=== PATIENT | female | born 1970 | race Caucasian/White ===

== ENCOUNTER 2021-04-13 03:13 | Inpatient (IN) ==
[2021-04-13] MEDS ORDERED: ONDANSETRON 4 MG/2 ML VIAL IV STA (03:40)
[2021-04-13] MEDS ORDERED: SODIUM CHLORIDE 0.9% 1,000 ML IV STA (03:40)
[2021-04-13] MEDS ORDERED: ONDANSETRON 4 MG/2 ML VIAL ONE (04:26)
[2021-04-13] MEDS ORDERED: OCTREOTIDE 100 MCG/ML SYRINGE IV STA (04:27)
[2021-04-13] MEDS ORDERED: PANTOPRAZOLE INJ 80 MG in SODIUM CHLORIDE 0.9% 100 ML IV ONE (04:27)
[2021-04-13 04:38] LABS: Basophils % 0.3 % (0.0-0.8); Hematocrit 36.1 VOL% (35.7-47.0); Hemoglobin 12.5 GM/DL (12.0-16.0); Immature Granulocytes % 1.1 %; Immature Granulocytes Absolute 0.12 #; Lymphocytes # 1.7 10*3/uL (1.4-4.0); Lymphocytes % 15.9 % (21.3-54.2); Mean Corpuscular HGB Conc 34.6 GM/DL (32-36); Mean Corpuscular Volume 92.8 FL (87-102); Mean Platelet Volume 12.7 FL (9.6-12.0); Monocytes % 7.6 % (1.7-12.7); Neutrophils % 75.1 % (38.7-73.9); Platelet Count 229 T/CUMM (130-400); Red Blood Count 3.89 MC/CUMM (3.8-5.5); White Blood Count 10.9 T/CUMM (4-12)
[2021-04-13] MEDS ORDERED: PANTOPRAZOLE 40 MG VIAL IV ONE ×2 (04:44→08:58)
[2021-04-13 05:00] LABS: Albumin 3.8 G/DL (3.4-5.0); Calcium 8.9 MG/DL (8.5-10.1); Osmolality,Calculated 254.6 MOS/KG (273-304); Total Protein 8.4 G/DL (6.4-8.2)
[2021-04-13] MEDS ORDERED: PROMETHAZINE INJ 12.5 MG in SODIUM CHLORIDE 0.9% 50 ML IV STA (05:00)
[2021-04-13 05:04] LABS: Potassium 2.5 MMOL/L (3.5-5.1)
[2021-04-13] MEDS ORDERED: THIAMINE INJ 100 MG, FOLIC ACID INJ 1 MG, MAGNESIUM SULF INJ 2 GM, MULTIVITAMIN INJ 10 ... IV ONE (05:04)
[2021-04-13] MEDS ORDERED: POTASSIUM CHLORIDE RIDER 20 MEQ/100 ML PREMIX IV ONE (05:16)
[2021-04-13] MEDS ORDERED: PROMETHAZINE 25 MG/1 ML VIAL ONE (05:18)
[2021-04-13] MEDS ORDERED: MORPHINE 2 MG/1 ML SYRINGE IV STA ×2 (05:58→07:30)
[2021-04-13] MEDS ORDERED: MORPHINE 2 MG/1 ML SYRINGE ONE ×2 (06:10→07:31)
[2021-04-13] MEDS: PANTOPRAZOLE INJ 200 MG in SODIUM CHLORIDE 0.9% 250 ML IV SCH (06:35)
[2021-04-13] MEDS ORDERED: POTASSIUM CHLORIDE RIDER 10 MEQ/100 ML PREMIX IV ONE ×3 (07:11→10:22)
[2021-04-13] MEDS: POTASSIUM CHLORIDE RIDER 10 MEQ/100 ML PREMIX IV SCH ×7 (07:18→17:30)
[2021-04-13] MEDS ORDERED: PROMETHAZINE 25 MG/1 ML VIAL IM PRN (08:13)
[2021-04-13] MEDS: LACTATED RINGERS 1,000 ML IV SCH ×2 (08:57→17:09)
[2021-04-13] MEDS: PANTOPRAZOLE 40 MG VIAL IV SCH ×2 (09:01→22:44)
[2021-04-13 09:14] LABS: Albumin 3.9 G/DL (3.4-5.0); Bilirubin,Direct 3.47 MG/DL (0.0-0.20); Bilirubin,Indirect 1.7 MG/DL (0.0-1.0); Bilirubin,Total 5.2 MG/DL (0.20-1.00); Total Protein 8.3 G/DL (6.4-8.2)
[2021-04-13 10:05] LABS: INR 1.1; PT Patient Result 12.6 SECS (10.5-12.0)
[2021-04-13] MEDS ORDERED: SILVER NITRATE STICK 1 EACH TOP ONE (10:05)
[2021-04-13] MEDS ORDERED: LORazepam 2 MG/1 ML VIAL ONE (10:23)
[2021-04-13] MEDS: LORazepam 2 MG/1 ML VIAL IV PRN ×3 (10:30→22:44)
[2021-04-13] MEDS: MORPHINE 2 MG/1 ML SYRINGE IV PRN ×2 (13:07→19:33)
[2021-04-13] MEDS: DIAZEPAM 5 MG TABLET PO PRN (13:08)
[2021-04-13 13:23] LABS: Albumin 3.1 G/DL (3.4-5.0); Bilirubin,Total 6.8 MG/DL (0.20-1.00); Calcium 7.8 MG/DL (8.5-10.1); Osmolality,Calculated 262.9 MOS/KG (273-304); Potassium 3.2 MMOL/L (3.5-5.1); Total Protein 6.5 G/DL (6.4-8.2)
[2021-04-13] MEDS ORDERED: MAGNESIUM SULF RIDER 4 GM/100 ML PREMIX IV PRN (14:37)
[2021-04-13] MEDS: ONDANSETRON 4 MG/2 ML VIAL IV PRN (15:06)
[2021-04-13] MEDS ORDERED: MORPHINE 2 MG/1 ML SYRINGE IV ONE (15:20)
[2021-04-13] MEDS: MAGNESIUM SULF RIDER 2 GM/50 ML PREMIX IV PRN ×2 (16:33→18:26)
[2021-04-13 16:48] LABS: Basophils % 0.2 % (0.0-0.8); Eosinophils % 0.1 % (0.00-10.9); Hematocrit 27.4 VOL% (35.7-47.0); Hemoglobin 9.5 GM/DL (12.0-16.0); Lymphocytes # 1.7 10*3/uL (1.4-4.0); Lymphocytes % 16.8 % (21.3-54.2); Mean Corpuscular HGB Conc 34.7 GM/DL (32-36); Mean Corpuscular Volume 94.2 FL (87-102); Mean Platelet Volume 13.8 FL (9.6-12.0); Monocytes % 5.3 % (1.7-12.7); Neutrophils % 76.6 % (38.7-73.9); Platelet Count 153 T/CUMM (130-400); Red Blood Count 2.91 MC/CUMM (3.8-5.5); Red Cell Distribution Width 15.4 % (9.3-17.3); White Blood Count 10.3 T/CUMM (4-12)
[2021-04-13 17:39] LABS: Bilirubin,Urine Negative (Negative); Blood, Urine Negative (Negative); Glucose,Urine (UA) Negative (Negative); Hyaline Casts,Urine 3 /LPF (0-3); Ketones,Urine Negative (Negative); Mucus,Urine Occasional /LPF (Occasional); Nitrite,Urine Negative (Negative); Protein,Urine Negative; RBC,Urine <1 /HPF (0-4); Squamous Epithelial Cell,Urine Occasional /HPF (0-10); Urine Appearance CLEAR (Clear); Urine Color Amber (Yellow); Urine Specific Gravity 1.035 (1.001-1.035)
[2021-04-13 18:05] LABS: Barbiturates Screen,Urine Negative (Negative); Benzodiazepines Screen,Urine Negative (Negative); Cannabinoid Screen,Urine Negative (Negative); Opiate Screen,Urine Positive (Negative); Phencyclidine Screen,Urine Negative (Negative)
[2021-04-13 18:22] LABS: Basophils % 0.3 % (0.0-0.8); Eosinophils % 0.3 % (0.00-10.9); Hematocrit 24.2 VOL% (35.7-47.0); Hemoglobin 8.2 GM/DL (12.0-16.0); Immature Granulocytes % 1.1 %; Immature Granulocytes Absolute 0.08 #; Lymphocytes # 1.5 10*3/uL (1.4-4.0); Lymphocytes % 19.9 % (21.3-54.2); Mean Corpuscular HGB Conc 33.9 GM/DL (32-36); Mean Corpuscular Volume 96.4 FL (87-102); Mean Platelet Volume 12.6 FL (9.6-12.0); Monocytes % 5.1 % (1.7-12.7); Neutrophils % 73.3 % (38.7-73.9); Platelet Count 115 T/CUMM (130-400); Red Blood Count 2.51 MC/CUMM (3.8-5.5); Red Cell Distribution Width 15.3 % (9.3-17.3); White Blood Count 7.5 T/CUMM (4-12)
[2021-04-13 18:56] LABS: Hypochromasia 3+; Platelet Estimate Adequate; Stomatocytes Slight; Target Cells Few
[2021-04-13] MEDS: POTASSIUM BICARB EFFERVESCENT 20 MEQ TAB.EFF PO SCH (22:46)
[2021-04-14] MEDS: MORPHINE 2 MG/1 ML SYRINGE IV PRN ×3 (00:27→20:34)
[2021-04-14 00:53] LABS: Basophils % 0.5 % (0.0-0.8); Eosinophils % 0.5 % (0.00-10.9); Hematocrit 22.5 VOL% (35.7-47.0); Hemoglobin 7.6 GM/DL (12.0-16.0); Immature Granulocytes % 0.9 %; Immature Granulocytes Absolute 0.07 #; Lymphocytes % 24.9 % (21.3-54.2); Mean Corpuscular HGB Conc 33.8 GM/DL (32-36); Mean Platelet Volume 12.9 FL (9.6-12.0); Monocytes % 5.2 % (1.7-12.7); Platelet Count 116 T/CUMM (130-400); Red Blood Count 2.32 MC/CUMM (3.8-5.5); Red Cell Distribution Width 15.2 % (9.3-17.3); White Blood Count 7.9 T/CUMM (4-12)
[2021-04-14 00:56] LABS: Albumin 2.8 G/DL (3.4-5.0); Bilirubin,Total 5.7 MG/DL (0.20-1.00); Calcium 7.7 MG/DL (8.5-10.1); Osmolality,Calculated 263.8 MOS/KG (273-304); Potassium 3.7 MMOL/L (3.5-5.1)
[2021-04-14] MEDS: LACTATED RINGERS 1,000 ML IV SCH ×3 (01:25→16:59)
[2021-04-14] MEDS ORDERED: SODIUM CHLORIDE 0.9% 1,000 ML IV PRN (03:16)
[2021-04-14 04:34] LABS: Basophils % 0.4 % (0.0-0.8); Eosinophils # 0.1 10*3/uL (0.0-0.87); Eosinophils % 1.2 % (0.00-10.9); Hematocrit 20.3 VOL% (35.7-47.0); Hemoglobin 6.8 GM/DL (12.0-16.0); Immature Granulocytes % 0.9 %; Immature Granulocytes Absolute 0.06 #; Lymphocytes # 1.9 10*3/uL (1.4-4.0); Lymphocytes % 27.9 % (21.3-54.2); Mean Corpuscular HGB Conc 33.5 GM/DL (32-36); Mean Corpuscular Volume 97.6 FL (87-102); Mean Platelet Volume 13.2 FL (9.6-12.0); Neutrophils % 63.6 % (38.7-73.9); Platelet Count 104 T/CUMM (130-400); Red Blood Count 2.08 MC/CUMM (3.8-5.5); Red Cell Distribution Width 15.1 % (9.3-17.3); White Blood Count 6.8 T/CUMM (4-12)
[2021-04-14] MEDS: LORazepam 2 MG/1 ML VIAL IV PRN ×2 (05:35→10:00)
[2021-04-14] MEDS ORDERED: FOLIC ACID 1 MG TABLET PO SCH (09:00)
[2021-04-14] MEDS: PANTOPRAZOLE INJ 200 MG in SODIUM CHLORIDE 0.9% 250 ML IV SCH (09:43)
[2021-04-14] MEDS: POTASSIUM BICARB EFFERVESCENT 20 MEQ TAB.EFF PO SCH (09:48)
[2021-04-14] MEDS: MULTIVITAMIN (CENTRUM) TABLET PO SCH (09:48)
[2021-04-14] MEDS: THIAMINE 200 MG/2 ML VIAL IV SCH (09:51)
[2021-04-14] MEDS: PANTOPRAZOLE 40 MG VIAL IV SCH ×2 (09:51→20:43)
[2021-04-14] MEDS ORDERED: LORazepam 2 MG/1 ML VIAL ONE (09:58)
[2021-04-14 11:08] LABS: Basophils % 0.3 % (0.0-0.8); Eosinophils # 0.1 10*3/uL (0.0-0.87); Eosinophils % 1.2 % (0.00-10.9); Hematocrit 24.8 VOL% (35.7-47.0); Immature Granulocytes % 0.8 %; Immature Granulocytes Absolute 0.05 #; Lymphocytes # 1.3 10*3/uL (1.4-4.0); Lymphocytes % 20.3 % (21.3-54.2); Mean Corpuscular HGB Conc 33.5 GM/DL (32-36); Mean Corpuscular Volume 95.8 FL (87-102); Monocytes % 6.6 % (1.7-12.7); Neutrophils % 70.8 % (38.7-73.9); Platelet Count 101 T/CUMM (130-400); Red Cell Distribution Width 15.6 % (9.3-17.3); White Blood Count 6.5 T/CUMM (4-12)
[2021-04-14 11:13] LABS: Hemoglobin 8.3 GM/DL (12.0-16.0); Red Blood Count 2.59 MC/CUMM (3.8-5.5)
[2021-04-14] MEDS ORDERED: EPINEPHrine 1 MG/ML VIAL ONE (12:48)
[2021-04-14] MEDS ORDERED: propofoL 200 MG/20 ML VIAL IV ONE (13:11)
[2021-04-14] MEDS ORDERED: NEOSTIGMINE 10 MG/10 ML VIAL ONE (13:11)
[2021-04-14] MEDS ORDERED: LIDOCAINE 2% 5 ML VIAL ONE (13:11)
[2021-04-14] MEDS ORDERED: GLYCOPYRROLATE 0.4 MG/2 ML VIAL ONE (13:12)
[2021-04-14] MEDS ORDERED: PHENYLEPHRINE 1 MG/10 ML SYRINGE IV ONE (13:12)
[2021-04-14] MEDS ORDERED: SUCCINYLCHOLINE 200 MG/10 ML VIAL ONE (13:12)
[2021-04-14] MEDS ORDERED: ROCURONIUM 50 MG/5 ML VIAL IV ONE (13:12)
[2021-04-14] MEDS: ONDANSETRON 4 MG/2 ML VIAL IV PRN ×2 (14:40→20:29)
[2021-04-14 20:55] LABS: Basophils % 0.4 % (0.0-0.8); Eosinophils # 0.1 10*3/uL (0.0-0.87); Eosinophils % 1.5 % (0.00-10.9); Hematocrit 24.4 VOL% (35.7-47.0); Hemoglobin 8.2 GM/DL (12.0-16.0); Immature Granulocytes % 0.7 %; Immature Granulocytes Absolute 0.05 #; Lymphocytes # 1.3 10*3/uL (1.4-4.0); Lymphocytes % 17.5 % (21.3-54.2); Mean Corpuscular HGB Conc 33.6 GM/DL (32-36); Mean Corpuscular Volume 96.4 FL (87-102); Mean Platelet Volume 12.2 FL (9.6-12.0); Monocytes % 5.8 % (1.7-12.7); Neutrophils % 74.1 % (38.7-73.9); Platelet Count 107 T/CUMM (130-400); Red Blood Count 2.53 MC/CUMM (3.8-5.5); Red Cell Distribution Width 15.9 % (9.3-17.3); White Blood Count 7.2 T/CUMM (4-12)
[2021-04-14] MEDS ORDERED: LIDOCAINE 2% VISCOUS 100 ML BOTTLE SWISH/SWAL ONE (22:22)
[2021-04-14] MEDS: DIAZEPAM 5 MG TABLET PO PRN (23:34)
[2021-04-15] MEDS: LACTATED RINGERS 1,000 ML IV SCH ×2 (01:08→09:04)
[2021-04-15] MEDS: MORPHINE 2 MG/1 ML SYRINGE IV PRN ×2 (03:05→19:01)
[2021-04-15] MEDS: LORazepam 2 MG/1 ML VIAL IV PRN ×2 (03:37→20:26)
[2021-04-15 04:45] LABS: Basophils % 0.3 % (0.0-0.8); Eosinophils # 0.1 10*3/uL (0.0-0.87); Eosinophils % 1.6 % (0.00-10.9); Hematocrit 23.8 VOL% (35.7-47.0); Hemoglobin 7.9 GM/DL (12.0-16.0); Immature Granulocytes % 1.2 %; Immature Granulocytes Absolute 0.08 #; Lymphocytes # 1.2 10*3/uL (1.4-4.0); Lymphocytes % 16.8 % (21.3-54.2); Mean Corpuscular HGB Conc 33.2 GM/DL (32-36); Mean Corpuscular Volume 95.6 FL (87-102); Monocytes % 6.6 % (1.7-12.7); Neutrophils % 73.5 % (38.7-73.9); Platelet Count 110 T/CUMM (130-400); Red Blood Count 2.49 MC/CUMM (3.8-5.5); Red Cell Distribution Width 15.9 % (9.3-17.3); White Blood Count 6.9 T/CUMM (4-12)
[2021-04-15 05:07] LABS: Albumin 2.7 G/DL (3.4-5.0); Calcium 8.8 MG/DL (8.5-10.1); Osmolality,Calculated 261.5 MOS/KG (273-304); Potassium 3.6 MMOL/L (3.5-5.1); Total Protein 5.5 G/DL (6.4-8.2)
[2021-04-15] MEDS ORDERED: SODIUM CHLORIDE 0.9% 1,000 ML IV PRN (07:57)
[2021-04-15] MEDS: ALUM/MAG/SIMETH/LIDO VISC 1:1 30 ML BOTTLE PO SCH ×5 (09:11→23:25)
[2021-04-15] MEDS: THIAMINE 200 MG/2 ML VIAL IV SCH (09:11)
[2021-04-15] MEDS: PANTOPRAZOLE 40 MG VIAL IV SCH ×2 (09:11→20:26)
[2021-04-15] MEDS: DIAZEPAM 5 MG TABLET PO PRN ×3 (09:27→19:30)
[2021-04-15] MEDS: FOLIC ACID 1 MG TABLET PO SCH (09:40)
[2021-04-15 11:45] LABS: Basophils % 0.4 % (0.0-0.8); Eosinophils # 0.1 10*3/uL (0.0-0.87); Eosinophils % 1.7 % (0.00-10.9); Hematocrit 25.2 VOL% (35.7-47.0); Hemoglobin 8.5 GM/DL (12.0-16.0); Immature Granulocytes Absolute 0.07 #; Lymphocytes # 0.8 10*3/uL (1.4-4.0); Lymphocytes % 10.9 % (21.3-54.2); Mean Corpuscular HGB Conc 33.7 GM/DL (32-36); Mean Corpuscular Volume 96.2 FL (87-102); Mean Platelet Volume 12.1 FL (9.6-12.0); Monocytes % 6.9 % (1.7-12.7); Neutrophils % 79.1 % (38.7-73.9); Platelet Count 119 T/CUMM (130-400); Red Blood Count 2.62 MC/CUMM (3.8-5.5); Red Cell Distribution Width 15.9 % (9.3-17.3); White Blood Count 7.2 T/CUMM (4-12)
[2021-04-15 21:13] LABS: Basophils % 0.4 % (0.0-0.8); Eosinophils # 0.1 10*3/uL (0.0-0.87); Eosinophils % 1.8 % (0.00-10.9); Hematocrit 25.5 VOL% (35.7-47.0); Hemoglobin 8.5 GM/DL (12.0-16.0); Immature Granulocytes % 1.5 %; Lymphocytes # 0.9 10*3/uL (1.4-4.0); Lymphocytes % 12.6 % (21.3-54.2); Mean Corpuscular HGB Conc 33.3 GM/DL (32-36); Mean Corpuscular Volume 96.6 FL (87-102); Mean Platelet Volume 11.9 FL (9.6-12.0); Monocytes % 7.8 % (1.7-12.7); Neutrophils % 75.9 % (38.7-73.9); Platelet Count 110 T/CUMM (130-400); Red Blood Count 2.64 MC/CUMM (3.8-5.5); White Blood Count 6.8 T/CUMM (4-12)
[2021-04-16] MEDS: LORazepam 2 MG/1 ML VIAL IV PRN ×3 (00:23→18:59)
[2021-04-16] MEDS: DIAZEPAM 5 MG TABLET PO PRN ×2 (02:03→08:03)
[2021-04-16] MEDS: ONDANSETRON 4 MG/2 ML VIAL IV PRN ×4 (02:03→18:58)
[2021-04-16] MEDS: ALUM/MAG/SIMETH/LIDO VISC 1:1 30 ML BOTTLE PO SCH ×5 (04:31→21:46)
[2021-04-16] MEDS: MORPHINE 2 MG/1 ML SYRINGE IV PRN (04:32)
[2021-04-16 06:18] LABS: Basophils % 0.5 % (0.0-0.8); Eosinophils # 0.1 10*3/uL (0.0-0.87); Eosinophils % 1.6 % (0.00-10.9); Hematocrit 26.6 VOL% (35.7-47.0); Hemoglobin 8.9 GM/DL (12.0-16.0); Immature Granulocytes % 1.4 %; Immature Granulocytes Absolute 0.09 #; Lymphocytes # 0.8 10*3/uL (1.4-4.0); Mean Corpuscular HGB Conc 33.5 GM/DL (32-36); Mean Platelet Volume 12.8 FL (9.6-12.0); Monocytes % 8.4 % (1.7-12.7); Neutrophils % 75.1 % (38.7-73.9); Red Blood Count 2.77 MC/CUMM (3.8-5.5); Red Cell Distribution Width 15.9 % (9.3-17.3); White Blood Count 6.3 T/CUMM (4-12)
[2021-04-16 06:39] LABS: Platelet Count 68 T/CUMM (130-400)
[2021-04-16 06:43] LABS: Hypochromasia 1+
[2021-04-16 06:44] LABS: Microcytosis 1+; Polychromasia Slight; Stomatocytes Slight; Target Cells Slight
[2021-04-16 06:51] LABS: Albumin 2.7 G/DL (3.4-5.0); Bilirubin,Total 7.2 MG/DL (0.20-1.00); Calcium 9.1 MG/DL (8.5-10.1); Osmolality,Calculated 253.9 MOS/KG (273-304); Total Protein 6.3 G/DL (6.4-8.2)
[2021-04-16] MEDS: PANTOPRAZOLE 40 MG VIAL IV SCH (08:03)
[2021-04-16] MEDS: THIAMINE 200 MG/2 ML VIAL IV SCH (08:03)
[2021-04-16] MEDS: FOLIC ACID 1 MG TABLET PO SCH (08:11)
[2021-04-16] MEDS ORDERED: SPIRONOLACTONE 25 MG TABLET PO ONE (09:30)
[2021-04-16] MEDS: LACTULOSE 20 GM/30 ML UDCUP PO SCH ×4 (09:47→21:48)
[2021-04-16] MEDS: DIAZEPAM 5 MG TABLET PO SCH ×2 (15:56→21:46)
[2021-04-16] MEDS ORDERED: PANTOPRAZOLE 40 MG TABLET PO SCH (21:00)
[2021-04-16] MEDS ORDERED: traZODone 50 MG TABLET PO PRN (22:12)
[2021-04-17] MEDS: ALUM/MAG/SIMETH/LIDO VISC 1:1 30 ML BOTTLE PO SCH ×6 (01:23→22:07)
[2021-04-17] MEDS: LORazepam 2 MG/1 ML VIAL IV PRN ×2 (05:32→22:10)
[2021-04-17 06:04] LABS: Calcium 8.6 MG/DL (8.5-10.1); Osmolality,Calculated 256.9 MOS/KG (273-304); Potassium 3.5 MMOL/L (3.5-5.1)
[2021-04-17 06:09] LABS: Albumin 2.8 G/DL (3.4-5.0); Bilirubin,Direct 5.91 MG/DL (0.0-0.20); Bilirubin,Indirect 1.8 MG/DL (0.0-1.0); Bilirubin,Total 7.7 MG/DL (0.20-1.00); Total Protein 6.4 G/DL (6.4-8.2)
[2021-04-17 06:10] LABS: Basophils % 0.4 % (0.0-0.8); Eosinophils # 0.1 10*3/uL (0.0-0.87); Eosinophils % 1.3 % (0.00-10.9); Hematocrit 25.7 VOL% (35.7-47.0); Hemoglobin 8.8 GM/DL (12.0-16.0); Immature Granulocytes % 2.4 %; Immature Granulocytes Absolute 0.17 #; Lymphocytes % 13.3 % (21.3-54.2); Mean Corpuscular HGB Conc 34.2 GM/DL (32-36); Mean Corpuscular Volume 96.3 FL (87-102); Mean Platelet Volume 12.1 FL (9.6-12.0); Monocytes % 12.1 % (1.7-12.7); Neutrophils % 70.5 % (38.7-73.9); Red Blood Count 2.67 MC/CUMM (3.8-5.5); Red Cell Distribution Width 16.6 % (9.3-17.3); White Blood Count 7.1 T/CUMM (4-12)
[2021-04-17 06:17] LABS: Platelet Count 139 T/CUMM (130-400)
[2021-04-17 06:39] LABS: Hypochromasia Slight
[2021-04-17] MEDS: FOLIC ACID 1 MG TABLET PO SCH (09:43)
[2021-04-17] MEDS: DIAZEPAM 5 MG TABLET PO SCH ×3 (09:45→22:12)
[2021-04-17] MEDS: PANTOPRAZOLE 40 MG VIAL IV SCH ×2 (09:46→22:12)
[2021-04-17] MEDS: THIAMINE 100 MG TABLET PO SCH (09:46)
[2021-04-17] MEDS: MULTIVITAMIN (CENTRUM) TABLET PO SCH (09:46)
[2021-04-17] MEDS: LACTULOSE 20 GM/30 ML UDCUP PO SCH ×3 (09:46→22:11)
[2021-04-18] MEDS: ALUM/MAG/SIMETH/LIDO VISC 1:1 30 ML BOTTLE PO SCH ×3 (00:54→10:54)
[2021-04-18 05:19] LABS: Basophils % 0.6 % (0.0-0.8); Eosinophils # 0.1 10*3/uL (0.0-0.87); Eosinophils % 1.4 % (0.00-10.9); Hemoglobin 8.2 GM/DL (12.0-16.0); Immature Granulocytes % 6.2 %; Immature Granulocytes Absolute 0.45 #; Lymphocytes # 1.2 10*3/uL (1.4-4.0); Lymphocytes % 17.1 % (21.3-54.2); Mean Corpuscular HGB Conc 32.8 GM/DL (32-36); Mean Corpuscular Volume 97.7 FL (87-102); Mean Platelet Volume 12.2 FL (9.6-12.0); Monocytes % 15.3 % (1.7-12.7); Neutrophils % 59.4 % (38.7-73.9); Platelet Count 168 T/CUMM (130-400); Red Blood Count 2.56 MC/CUMM (3.8-5.5); Red Cell Distribution Width 17.6 % (9.3-17.3); White Blood Count 7.2 T/CUMM (4-12)
[2021-04-18 05:44] LABS: Albumin 2.7 G/DL (3.4-5.0); Bilirubin,Direct 5.9 MG/DL (0.0-0.20); Bilirubin,Indirect 1.7 MG/DL (0.0-1.0); Bilirubin,Total 7.6 MG/DL (0.20-1.00); Total Protein 6.1 G/DL (6.4-8.2)
[2021-04-18 05:52] LABS: Atypical Lymphocytes Few; Band Neutrophils 3 % (0-10); Eosinophils 4 % (0-10); Hypochromasia 1+; Lymphocytes 19 % (20-55); Microcytosis 1+; Segmented Neutrophils 60 % (50-85); Total Cells Counted 100
[2021-04-18 05:53] LABS: Platelet Estimate Adequate; Polychromasia Slight; Target Cells Slight
[2021-04-18 05:58] LABS: Calcium 8.6 MG/DL (8.5-10.1); Osmolality,Calculated 259.7 MOS/KG (273-304); Potassium 3.4 MMOL/L (3.5-5.1)
[2021-04-18] MEDS ORDERED: chlordiazePOXIDE 25 MG CAPSULE PO SCH (09:32)
[2021-04-18] MEDS: MULTIVITAMIN (CENTRUM) TABLET PO SCH (10:54)
[2021-04-18] MEDS: DIAZEPAM 5 MG TABLET PO SCH (10:54)
[2021-04-18] MEDS: FOLIC ACID 1 MG TABLET PO SCH (10:55)
[2021-04-18] MEDS: THIAMINE 100 MG TABLET PO SCH (10:55)
[2021-04-18] MEDS: PANTOPRAZOLE 40 MG VIAL IV SCH (10:55)
[2021-04-18] MEDS: LACTULOSE 20 GM/30 ML UDCUP PO SCH (10:56)
[2021-04-18 12:19] VITALS: BP 111/74
== END 2021-04-18 12:25 | disposition home or self-care (01) | DRG 368 ==
LOC: N.ED 03:13 → SUATTDRO 08:13 → N.EDINP 08:13 → N.2E 11:38 → N.ICU 15:06 → N.TELES 04-16 16:29
PROVIDERS: ADMIT Family Medicine; ATTEND Emergency Medicine

== ENCOUNTER 2021-04-25 15:07 | Inpatient (IN) ==
[2021-04-25] MEDS ORDERED: ONDANSETRON 4 MG/2 ML VIAL IV STA (17:55)
[2021-04-25] MEDS ORDERED: SODIUM CHLORIDE 0.9% 1,000 ML IV STA (17:55)
[2021-04-25] MEDS ORDERED: diphenhydrAMINE 50 MG/1 ML VIAL IV STA (17:55)
[2021-04-25] MEDS ORDERED: MORPHINE 2 MG/1 ML SYRINGE IV STA (17:55)
[2021-04-25 18:10] LABS: Basophils # 0.1 10*3/uL (0.0-0.2); Basophils % 0.4 % (0.0-0.8); Eosinophils # 0.1 10*3/uL (0.0-0.87); Eosinophils % 0.4 % (0.00-10.9); Hematocrit 30.6 VOL% (35.7-47.0); Hemoglobin 10.4 GM/DL (12.0-16.0); Immature Granulocytes % 2.2 %; Immature Granulocytes Absolute 0.33 #; Lymphocytes # 1.6 10*3/uL (1.4-4.0); Lymphocytes % 10.8 % (21.3-54.2); Mean Corpuscular Volume 98.1 FL (87-102); Monocytes % 5.4 % (1.7-12.7); Neutrophils % 80.8 % (38.7-73.9); Platelet Count 371 T/CUMM (130-400); Red Blood Count 3.12 MC/CUMM (3.8-5.5); Red Cell Distribution Width 20.8 % (9.3-17.3)
[2021-04-25 18:58] LABS: Blood, Urine Negative (Negative); Glucose,Urine (UA) 50 mg/dL (Negative); Ketones,Urine 5 mg/dL (Negative); Mucus,Urine Many /LPF (Occasional); Nitrite,Urine Negative (Negative); Protein,Urine 30 MG/DL; RBC,Urine 2 /HPF (0-4); Squamous Epithelial Cell,Urine Few /HPF (0-10); Urine Appearance Slightly Hazy (Clear); Urine Color Amber (Yellow); Urine Specific Gravity 1.024 (1.001-1.035)
[2021-04-25 18:59] LABS: Bilirubin,Urine Moderate mg/dL (Negative)
[2021-04-25 19:34] LABS: Barbiturates Screen,Urine Negative (Negative); Benzodiazepines Screen,Urine Positive (Negative); Cannabinoid Screen,Urine Negative (Negative); Opiate Screen,Urine Negative (Negative); Phencyclidine Screen,Urine Negative (Negative)
[2021-04-25 20:04] LABS: Potassium 3.4 MMOL/L (3.5-5.1); Sodium 136 MMOL/L (136-145)
[2021-04-25 20:06] LABS: Calcium 8.1 MG/DL (8.5-10.1)
[2021-04-25 20:07] LABS: Albumin 2.3 G/DL (3.4-5.0); Blood Urea Nitrogen 4 MG/DL (7-18); Carbon Dioxide 23 MMOL/L (21-32); Glucose 88 MG/DL (74-106)
[2021-04-25 20:08] LABS: Amylase 17 U/L (25-115)
[2021-04-25 20:10] LABS: Alanine Aminotransferase 37 U/L (13-56); Aspartate Amino Transferase 107 U/L (0-37); Estimated Glom Filtration Rate 102 ML/MIN
[2021-04-25 20:11] LABS: INR 1.6; PT Patient Result 17.2 SECS (10.5-12.0); Partial Thromboplastin Time 25.2 SECS (23.8-32.1)
[2021-04-25 20:12] LABS: Total Protein 6.3 G/DL (6.4-8.2)
[2021-04-25 20:13] LABS: Alkaline Phosphatase 315 U/L (45-117)
[2021-04-25] MEDS ORDERED: LEVOFLOXACIN INJ 750 MG/150 ML PREMIX IV STA (21:14)
[2021-04-25] MEDS ORDERED: HYDROmorphone 2 MG/1 ML VIAL IV STA (22:59)
[2021-04-25] MEDS ORDERED: MORPHINE 2 MG/1 ML SYRINGE IV PRN (23:19)
[2021-04-25] MEDS ORDERED: guaiFENesin/DM ER 600-30 MG TABLET PO PRN (23:19)
[2021-04-25] MEDS ORDERED: DEXTROSE 50% 25 GM/50 ML SYRINGE IV PRN (23:19)
[2021-04-25] MEDS ORDERED: hydrALAZINE 20 MG/1 ML VIAL IV PRN (23:19)
[2021-04-25] MEDS ORDERED: GLUCAGON 1 MG VIAL IM PRN (23:19)
[2021-04-25] MEDS ORDERED: NICOTINE 21 MG/24 HR PATCH TRANSDERM PRN (23:19)
[2021-04-25] MEDS ORDERED: ZALEPLON 5 MG CAPSULE PO PRN (23:19)
[2021-04-25] MEDS ORDERED: ALUMINUM/MAGNES/SIMETH MAX STR 30 ML UDCUP PO PRN (23:19)
[2021-04-26] MEDS ORDERED: VANCOMYCIN INJ 1,000 MG in SODIUM CHLORIDE 0.9% 250 ML IV SCH
[2021-04-26] MEDS: VANCOMYCIN INJ 1,000 MG in SODIUM CHLORIDE 0.9% 250 ML IV SCH ×2 (00:55→14:12)
[2021-04-26] MEDS ORDERED: metroNIDAZOLE INJ 500 MG/100 ML PREMIX IV SCH (02:00)
[2021-04-26] MEDS: LACTULOSE 20 GM/30 ML UDCUP PO SCH ×6 (02:15→21:51)
[2021-04-26] MEDS: DEXTROSE 5% NACL 0.9% 1,000 ML IV SCH ×2 (02:16→15:53)
[2021-04-26] MEDS: metroNIDAZOLE INJ 500 MG/100 ML PREMIX IV SCH ×3 (02:16→18:06)
[2021-04-26 02:19] LABS: Basophils % 0.3 % (0.0-0.8); Eosinophils # 0.1 10*3/uL (0.0-0.87); Eosinophils % 0.5 % (0.00-10.9); Hematocrit 27.3 VOL% (35.7-47.0); Immature Granulocytes % 2.8 %; Immature Granulocytes Absolute 0.42 #; Lymphocytes # 1.6 10*3/uL (1.4-4.0); Lymphocytes % 10.8 % (21.3-54.2); Mean Corpuscular Volume 101.1 FL (87-102); Mean Platelet Volume 10.9 FL (9.6-12.0); Monocytes % 5.4 % (1.7-12.7); Neutrophils % 80.2 % (38.7-73.9); Platelet Count 436 T/CUMM (130-400); Red Cell Distribution Width 19.6 % (9.3-17.3); White Blood Count 14.9 T/CUMM (4-12)
[2021-04-26 02:39] LABS: Band Neutrophils 2 % (0-10); Lymphocytes 11 % (20-55); Metamyelocytes 1 %; Platelet Estimate Increased; Promyelocytes 1 %; Segmented Neutrophils 81 % (50-85); Total Cells Counted 100
[2021-04-26 02:42] LABS: Calcium 7.8 MG/DL (8.5-10.1); Osmolality,Calculated 264.2 MOS/KG (273-304); Potassium 3.3 MMOL/L (3.5-5.1)
[2021-04-26 02:46] LABS: Albumin 2.3 G/DL (3.4-5.0); Bilirubin,Direct 14.69 MG/DL (0.0-0.20); Bilirubin,Indirect 4.3 MG/DL (0.0-1.0); Total Protein 5.9 G/DL (6.4-8.2)
[2021-04-26] MEDS ORDERED: SODIUM CHLORIDE 0.9% 1,000 ML IV STA (06:48)
[2021-04-26] MEDS: HYDROmorphone 2 MG/1 ML VIAL IV PRN ×4 (07:30→22:24)
[2021-04-26] MEDS ORDERED: POTASSIUM CHLORIDE 20 MEQ TABLET PO ONE (07:34)
[2021-04-26] MEDS ORDERED: MAGNESIUM SULF RIDER 2 GM/50 ML PREMIX IV ONE (07:35)
[2021-04-26] MEDS ORDERED: PANTOPRAZOLE 40 MG TABLET PO SCH (09:00)
[2021-04-26] MEDS: BISACODYL 5 MG TABLET PO SCH (09:22)
[2021-04-26] MEDS: HEPARIN 5,000 UNIT/1 ML VIAL SUBCUT SCH (09:22)
[2021-04-26] MEDS ORDERED: SODIUM CHLORIDE 0.9% 1,000 ML IV PRN (09:36)
[2021-04-26] MEDS ORDERED: ACETYLCYSTEINE 20% 6,000 MG/30 ML VIAL PO ONE (10:00)
[2021-04-26] MEDS: CHOLESTYRAMINE 4 GM PACK PO SCH ×2 (12:45→21:51)
[2021-04-26 14:29] LABS: Hematocrit 26.5 VOL% (35.7-47.0); Hemoglobin 8.3 GM/DL (12.0-16.0)
[2021-04-26] MEDS: diphenhydrAMINE CAP 25 MG CAPSULE PO PRN (15:22)
[2021-04-26] MEDS: ACETYLCYSTEINE 20% 6,000 MG/30 ML VIAL PO SCH ×3 (15:24→22:41)
[2021-04-26 20:14] LABS: Hematocrit 28.2 VOL% (35.7-47.0); Hemoglobin 8.8 GM/DL (12.0-16.0)
[2021-04-26] MEDS ORDERED: LEVOFLOXACIN INJ 750 MG/150 ML PREMIX IV SCH (21:00)
[2021-04-26] MEDS: PANTOPRAZOLE 40 MG TABLET PO SCH (21:49)
[2021-04-26] MEDS: LEVOFLOXACIN INJ 750 MG/150 ML PREMIX IV SCH (22:02)
[2021-04-27] MEDS ORDERED: HYDROmorphone 2 MG TABLET PO ONE (02:19)
[2021-04-27] MEDS: ACETYLCYSTEINE 20% 6,000 MG/30 ML VIAL PO SCH ×6 (04:19→21:22)
[2021-04-27] MEDS: metroNIDAZOLE INJ 500 MG/100 ML PREMIX IV SCH ×3 (04:19→17:22)
[2021-04-27] MEDS: LACTULOSE 20 GM/30 ML UDCUP PO SCH ×4 (04:19→21:18)
[2021-04-27] MEDS: diphenhydrAMINE CAP 25 MG CAPSULE PO PRN ×2 (04:38→17:31)
[2021-04-27 07:31] LABS: Basophils % 0.4 % (0.0-0.8); Eosinophils # 0.1 10*3/uL (0.0-0.87); Eosinophils % 0.7 % (0.00-10.9); Hematocrit 25.9 VOL% (35.7-47.0); Hemoglobin 8.2 GM/DL (12.0-16.0); Immature Granulocytes Absolute 0.56 #; Lymphocytes % 8.9 % (21.3-54.2); Mean Corpuscular HGB Conc 31.7 GM/DL (32-36); Monocytes % 6.8 % (1.7-12.7); Neutrophils % 78.2 % (38.7-73.9); Platelet Count 346 T/CUMM (130-400); Red Blood Count 2.49 MC/CUMM (3.8-5.5); White Blood Count 11.1 T/CUMM (4-12)
[2021-04-27 07:35] LABS: Hematocrit 25.5 VOL% (35.7-47.0); Hemoglobin 8.1 GM/DL (12.0-16.0)
[2021-04-27 07:52] LABS: Albumin 2.1 G/DL (3.4-5.0); Bilirubin,Direct 14.93 MG/DL (0.0-0.20); Bilirubin,Indirect 4.6 MG/DL (0.0-1.0); Total Protein 5.9 G/DL (6.4-8.2)
[2021-04-27 07:54] LABS: Albumin 2.1 G/DL (3.4-5.0); Bilirubin,Total 19.5 MG/DL (0.20-1.00); Calcium 7.9 MG/DL (8.5-10.1); Osmolality,Calculated 265.2 MOS/KG (273-304); Potassium 3.3 MMOL/L (3.5-5.1); Total Protein 6.1 G/DL (6.4-8.2)
[2021-04-27 07:59] LABS: Bilirubin,Total 19.4 MG/DL (0.20-1.00)
[2021-04-27 08:20] LABS: Atypical Lymphocytes Few; Band Neutrophils 1 % (0-10); Lymphocytes 19 % (20-55); Macrocytosis 1+; Platelet Estimate Normal; Segmented Neutrophils 77 % (50-85); Total Cells Counted 100
[2021-04-27] MEDS: BISACODYL 5 MG TABLET PO SCH (09:45)
[2021-04-27] MEDS: CHOLESTYRAMINE 4 GM PACK PO SCH ×2 (09:45→21:19)
[2021-04-27] MEDS: PANTOPRAZOLE 40 MG TABLET PO SCH ×2 (09:45→21:18)
[2021-04-27] MEDS: HYDROmorphone 2 MG/1 ML VIAL IV PRN ×3 (09:46→21:25)
[2021-04-27] MEDS ORDERED: LACTULOSE 20 GM/30 ML UDCUP PO SCH (12:00)
[2021-04-27] MEDS: LEVOFLOXACIN INJ 750 MG/150 ML PREMIX IV SCH (21:19)
[2021-04-28] MEDS: LACTULOSE 20 GM/30 ML UDCUP PO SCH ×6 (00:47→22:39)
[2021-04-28] MEDS: HYDROmorphone 2 MG/1 ML VIAL IV PRN ×5 (00:48→14:32)
[2021-04-28] MEDS: metroNIDAZOLE INJ 500 MG/100 ML PREMIX IV SCH ×3 (02:53→17:28)
[2021-04-28] MEDS: ACETYLCYSTEINE 20% 6,000 MG/30 ML VIAL PO SCH ×6 (03:00→22:40)
[2021-04-28 03:48] LABS: Basophils % 0.2 % (0.0-0.8); Hematocrit 28.2 VOL% (35.7-47.0); Hemoglobin 8.9 GM/DL (12.0-16.0); Immature Granulocytes % 6.2 %; Immature Granulocytes Absolute 0.94 #; Lymphocytes % 6.7 % (21.3-54.2); Mean Corpuscular HGB Conc 31.6 GM/DL (32-36); Mean Corpuscular Volume 105.2 FL (87-102); Mean Platelet Volume 11.3 FL (9.6-12.0); Monocytes % 2.8 % (1.7-12.7); Neutrophils % 84.1 % (38.7-73.9); Platelet Count 380 T/CUMM (130-400); Red Blood Count 2.68 MC/CUMM (3.8-5.5); Red Cell Distribution Width 19.5 % (9.3-17.3); White Blood Count 15.2 T/CUMM (4-12)
[2021-04-28 04:06] LABS: Band Neutrophils 1 % (0-10); Lymphocytes 9 % (20-55); Platelet Estimate Adequate; Segmented Neutrophils 89 % (50-85); Total Cells Counted 100
[2021-04-28 04:07] LABS: Hypochromasia 1+; Microcytosis 1+
[2021-04-28 04:15] LABS: Albumin 2.3 G/DL (3.4-5.0); Bilirubin,Direct 17.84 MG/DL (0.0-0.20); Total Protein 6.7 G/DL (6.4-8.2)
[2021-04-28 04:17] LABS: Calcium 8.1 MG/DL (8.5-10.1); Osmolality,Calculated 270.8 MOS/KG (273-304); Potassium 3.2 MMOL/L (3.5-5.1)
[2021-04-28 04:18] LABS: Bilirubin,Indirect 3.6 MG/DL (0.0-1.0); Bilirubin,Total 21.4 MG/DL (0.20-1.00)
[2021-04-28] MEDS: BISACODYL 5 MG TABLET PO SCH (10:23)
[2021-04-28] MEDS: CHOLESTYRAMINE 4 GM PACK PO SCH ×2 (10:23→22:40)
[2021-04-28] MEDS: PANTOPRAZOLE 40 MG TABLET PO SCH ×2 (10:24→22:40)
[2021-04-28] MEDS: ONDANSETRON 4 MG/2 ML VIAL IV PRN (10:54)
[2021-04-28] MEDS: LEVOFLOXACIN INJ 750 MG/150 ML PREMIX IV SCH (22:40)
[2021-04-29] MEDS: HYDROmorphone 2 MG/1 ML VIAL IV PRN ×5 (01:27→21:52)
[2021-04-29] MEDS: diphenhydrAMINE CAP 25 MG CAPSULE PO PRN (01:27)
[2021-04-29] MEDS: ACETYLCYSTEINE 20% 6,000 MG/30 ML VIAL PO SCH ×2 (01:27→06:59)
[2021-04-29] MEDS: LACTULOSE 20 GM/30 ML UDCUP PO SCH ×6 (01:28→21:36)
[2021-04-29] MEDS: metroNIDAZOLE INJ 500 MG/100 ML PREMIX IV SCH ×3 (01:29→17:04)
[2021-04-29 07:39] LABS: Basophils % 0.2 % (0.0-0.8); Eosinophils % 0.2 % (0.00-10.9); Hematocrit 23.3 VOL% (35.7-47.0); Hemoglobin 7.4 GM/DL (12.0-16.0); Immature Granulocytes % 5.3 %; Lymphocytes # 1.4 10*3/uL (1.4-4.0); Lymphocytes % 10.7 % (21.3-54.2); Mean Corpuscular HGB Conc 31.8 GM/DL (32-36); Mean Corpuscular Volume 103.6 FL (87-102); Mean Platelet Volume 11.2 FL (9.6-12.0); Monocytes % 7.3 % (1.7-12.7); Neutrophils % 76.3 % (38.7-73.9); Platelet Count 339 T/CUMM (130-400); Red Blood Count 2.25 MC/CUMM (3.8-5.5); Red Cell Distribution Width 19.3 % (9.3-17.3); White Blood Count 13.3 T/CUMM (4-12)
[2021-04-29 07:57] LABS: Calcium 7.7 MG/DL (8.5-10.1); Osmolality,Calculated 283.1 MOS/KG (273-304); Potassium 2.8 MMOL/L (3.5-5.1)
[2021-04-29 08:01] LABS: Bilirubin,Direct 13.28 MG/DL (0.0-0.20); Bilirubin,Indirect 4.7 MG/DL (0.0-1.0); Total Protein 5.2 G/DL (6.4-8.2)
[2021-04-29 08:03] LABS: Band Neutrophils 1 % (0-10); Lymphocytes 19 % (20-55); Macrocytosis 1+; Myelocytes 2 %; Platelet Estimate Normal; Segmented Neutrophils 74 % (50-85); Total Cells Counted 100
[2021-04-29 08:04] LABS: Hypochromasia 1+; Target Cells Slight
[2021-04-29] MEDS: POTASSIUM CHLORIDE 20 MEQ PACK PO SCH ×2 (08:43→09:20)
[2021-04-29] MEDS: BISACODYL 5 MG TABLET PO SCH (08:44)
[2021-04-29] MEDS: PANTOPRAZOLE 40 MG TABLET PO SCH ×2 (08:44→21:36)
[2021-04-29] MEDS: HEPARIN 5,000 UNIT/1 ML VIAL SUBCUT SCH ×2 (08:44→21:36)
[2021-04-29] MEDS: CHOLESTYRAMINE 4 GM PACK PO SCH ×2 (09:20→21:35)
[2021-04-29] MEDS ORDERED: POTASSIUM CHLORIDE RIDER 10 MEQ/100 ML PREMIX IV PRN (17:28)
[2021-04-29] MEDS: LEVOFLOXACIN INJ 750 MG/150 ML PREMIX IV SCH (21:35)
[2021-04-30] MEDS: LACTULOSE 20 GM/30 ML UDCUP PO SCH ×5 (02:13→21:13)
[2021-04-30] MEDS: metroNIDAZOLE INJ 500 MG/100 ML PREMIX IV SCH ×3 (02:14→17:20)
[2021-04-30] MEDS: HYDROmorphone 2 MG/1 ML VIAL IV PRN ×4 (05:08→23:13)
[2021-04-30 06:13] LABS: Basophils % 0.2 % (0.0-0.8); Eosinophils % 0.4 % (0.00-10.9); Hemoglobin 7.7 GM/DL (12.0-16.0); Immature Granulocytes % 7.5 %; Immature Granulocytes Absolute 0.84 #; Lymphocytes # 1.4 10*3/uL (1.4-4.0); Lymphocytes % 12.4 % (21.3-54.2); Mean Corpuscular HGB Conc 30.8 GM/DL (32-36); Mean Corpuscular Volume 105.9 FL (87-102); Mean Platelet Volume 11.1 FL (9.6-12.0); Monocytes % 8.4 % (1.7-12.7); Neutrophils % 71.1 % (38.7-73.9); Platelet Count 284 T/CUMM (130-400); Red Blood Count 2.36 MC/CUMM (3.8-5.5); Red Cell Distribution Width 19.4 % (9.3-17.3); White Blood Count 11.3 T/CUMM (4-12)
[2021-04-30 06:38] LABS: Band Neutrophils 6 % (0-10); Lymphocytes 15 % (20-55); Metamyelocytes 2 %; Myelocytes 1 %; Segmented Neutrophils 66 % (50-85); Total Cells Counted 100
[2021-04-30 06:39] LABS: Hypochromasia 1+; Macrocytosis 1+
[2021-04-30 06:41] LABS: Calcium 8.1 MG/DL (8.5-10.1); Osmolality,Calculated 270.8 MOS/KG (273-304); Potassium 3.3 MMOL/L (3.5-5.1)
[2021-04-30 06:43] LABS: Albumin 1.9 G/DL (3.4-5.0); Bilirubin,Direct 13.2 MG/DL (0.0-0.20); Bilirubin,Indirect 3.8 MG/DL (0.0-1.0); Total Protein 5.5 G/DL (6.4-8.2)
[2021-04-30] MEDS: CHOLESTYRAMINE 4 GM PACK PO SCH ×2 (09:27→21:13)
[2021-04-30] MEDS: PANTOPRAZOLE 40 MG TABLET PO SCH ×2 (09:28→21:13)
[2021-04-30] MEDS: HEPARIN 5,000 UNIT/1 ML VIAL SUBCUT SCH ×2 (09:30→21:27)
[2021-04-30] MEDS: BISACODYL 5 MG TABLET PO SCH (09:30)
[2021-04-30] MEDS: ONDANSETRON 4 MG/2 ML VIAL IV PRN (09:40)
[2021-04-30] MEDS: RIFAXIMIN 550 MG TABLET PO SCH (21:13)
[2021-04-30] MEDS: LEVOFLOXACIN INJ 750 MG/150 ML PREMIX IV SCH (21:17)
[2021-05-01] MEDS: LACTULOSE 20 GM/30 ML UDCUP PO SCH ×3 (02:47→14:10)
[2021-05-01] MEDS: metroNIDAZOLE INJ 500 MG/100 ML PREMIX IV SCH ×2 (02:54→10:24)
[2021-05-01] MEDS: HYDROmorphone 2 MG/1 ML VIAL IV PRN ×3 (03:02→14:11)
[2021-05-01 05:51] LABS: Basophils % 0.3 % (0.0-0.8); Eosinophils # 0.1 10*3/uL (0.0-0.87); Eosinophils % 0.5 % (0.00-10.9); Hematocrit 25.3 VOL% (35.7-47.0); Hemoglobin 8.1 GM/DL (12.0-16.0); Immature Granulocytes % 7.3 %; Immature Granulocytes Absolute 0.86 #; Lymphocytes # 1.3 10*3/uL (1.4-4.0); Lymphocytes % 10.6 % (21.3-54.2); Mean Corpuscular Volume 104.1 FL (87-102); Mean Platelet Volume 11.4 FL (9.6-12.0); Monocytes % 7.9 % (1.7-12.7); Neutrophils % 73.4 % (38.7-73.9); Platelet Count 256 T/CUMM (130-400); Red Blood Count 2.43 MC/CUMM (3.8-5.5); Red Cell Distribution Width 19.5 % (9.3-17.3); White Blood Count 11.9 T/CUMM (4-12)
[2021-05-01 06:14] LABS: Band Neutrophils 3 % (0-10); Hypochromasia Slight; Lymphocytes 11 % (20-55); Platelet Estimate Normal; Segmented Neutrophils 79 % (50-85); Total Cells Counted 100
[2021-05-01 06:19] LABS: Albumin 1.9 G/DL (3.4-5.0); Bilirubin,Direct 12.3 MG/DL (0.0-0.20); Calcium 7.9 MG/DL (8.5-10.1); Potassium 3.2 MMOL/L (3.5-5.1); Total Protein 5.4 G/DL (6.4-8.2)
[2021-05-01 06:39] LABS: Bilirubin,Indirect 3.7 MG/DL (0.0-1.0)
[2021-05-01] MEDS ORDERED: POTASSIUM CHLORIDE 20 MEQ PACK PO ONE (08:03)
[2021-05-01] MEDS: HEPARIN 5,000 UNIT/1 ML VIAL SUBCUT SCH (08:15)
[2021-05-01] MEDS: PANTOPRAZOLE 40 MG TABLET PO SCH (08:20)
[2021-05-01] MEDS: RIFAXIMIN 550 MG TABLET PO SCH (08:20)
[2021-05-01] MEDS: BISACODYL 5 MG TABLET PO SCH (08:20)
[2021-05-01] MEDS: CHOLESTYRAMINE 4 GM PACK PO SCH (10:24)
[2021-05-01 12:23] VITALS: BP 111/76
== END 2021-05-01 15:26 | disposition home or self-care (01) | DRG 442 ==
LOC: N.ED 15:07 → N.EDINP 23:19 → SUATTDRO 23:19 → N.EDINP 04-26 01:06 → N.TELES 04-26 13:35
PROVIDERS: ADMIT Internal Medicine; ATTEND Internal Medicine

== ENCOUNTER 2021-05-11 11:32 | Inpatient (IN) ==
[2021-05-11] MEDS ORDERED: ONDANSETRON 4 MG/2 ML VIAL ONE (12:41)
[2021-05-11] MEDS ORDERED: ONDANSETRON 4 MG/2 ML VIAL IV STA (12:54)
[2021-05-11 13:03] LABS: Basophils % 0.1 % (0.0-0.8); Eosinophils % 0.2 % (0.00-10.9); Hematocrit 23.7 VOL% (35.7-47.0); Hemoglobin 7.6 GM/DL (12.0-16.0); Immature Granulocytes % 4.6 %; Immature Granulocytes Absolute 0.96 #; Lymphocytes # 2.2 10*3/uL (1.4-4.0); Lymphocytes % 10.4 % (21.3-54.2); Mean Corpuscular HGB Conc 32.1 GM/DL (32-36); Mean Corpuscular Volume 105.8 FL (87-102); Mean Platelet Volume 11.7 FL (9.6-12.0); Monocytes % 4.3 % (1.7-12.7); Neutrophils % 80.4 % (38.7-73.9); Platelet Count 315 T/CUMM (130-400); Red Blood Count 2.24 MC/CUMM (3.8-5.5); Red Cell Distribution Width 17.1 % (9.3-17.3); White Blood Count 21.1 T/CUMM (4-12)
[2021-05-11 13:22] LABS: Albumin 1.6 G/DL (3.4-5.0); Calcium 8.1 MG/DL (8.5-10.1); Potassium 3.1 MMOL/L (3.5-5.1); Total Protein 5.7 G/DL (6.4-8.2)
[2021-05-11 13:23] LABS: INR 1.8; PT Patient Result 19.3 SECS (10.5-12.0); Partial Thromboplastin Time 27.9 SECS (23.8-32.1)
[2021-05-11 13:25] LABS: Bilirubin,Total 17.5 MG/DL (0.20-1.00)
[2021-05-11 13:33] LABS: Macrocytosis Slight; Platelet Estimate Increased
[2021-05-11 13:38] LABS: Burr Cells Slight; Misc Morphology Q
[2021-05-11 13:39] LABS: Polychromasia Slight; Target Cells Slight
[2021-05-11 13:40] LABS: Tear Drop Cells Slight
[2021-05-11 13:50] LABS: Band Neutrophils 2 % (0-10); Lymphocytes 9 % (20-55); Segmented Neutrophils 85 % (50-85); Total Cells Counted 100
[2021-05-11] MEDS ORDERED: SODIUM CHLORIDE 0.9% 1,000 ML IV PRN (14:16)
[2021-05-11 15:15] LABS: Bilirubin,Urine Moderate mg/dL (Negative); Blood, Urine Small mg/dL (Negative); Glucose,Urine (UA) Negative (Negative); Hyaline Casts,Urine 16 /LPF (0-3); Ketones,Urine Negative (Negative); Mucus,Urine Few /LPF (Occasional); Nitrite,Urine Negative (Negative); Protein,Urine 30 MG/DL; RBC,Urine 7 /HPF (0-4); Squamous Epithelial Cell,Urine Occasional /HPF (0-10); Urine Appearance Slightly Hazy (Clear); Urine Color Amber (Yellow); Urine Specific Gravity 1.018 (1.001-1.035)
[2021-05-11] MEDS ORDERED: GLUCAGON 1 MG VIAL IM PRN (16:10)
[2021-05-11] MEDS ORDERED: DEXTROSE 50% 25 GM/50 ML SYRINGE IV PRN (16:10)
[2021-05-11] MEDS: LACTATED RINGERS 1,000 ML IV SCH (17:47)
[2021-05-11 18:34] LABS: Hematocrit 22.2 VOL% (35.7-47.0); Hemoglobin 7.2 GM/DL (12.0-16.0)
[2021-05-11] MEDS ORDERED: IBUPROFEN 600 MG TABLET PO ONE (21:21)
[2021-05-11] MEDS: CIPROFLOXACIN INJ 400 MG/200 ML PREMIX IV SCH (22:06)
[2021-05-11 22:12] LABS: Hematocrit 28.7 VOL% (35.7-47.0); Hemoglobin 8.6 GM/DL (12.0-16.0)
[2021-05-11] MEDS ORDERED: HYDROmorphone 2 MG/1 ML VIAL IV ONE (22:38)
[2021-05-11 23:52] LABS: Hemoglobin 5.7 GM/DL (12.0-16.0)
[2021-05-11 23:53] LABS: Hematocrit 17.8 VOL% (35.7-47.0)
[2021-05-12] MEDS: ONDANSETRON 4 MG/2 ML VIAL IV PRN ×3 (01:56→21:35)
[2021-05-12] MEDS: LACTATED RINGERS 1,000 ML IV SCH (09:27)
[2021-05-12] MEDS: CIPROFLOXACIN INJ 400 MG/200 ML PREMIX IV SCH ×2 (09:27→22:28)
[2021-05-12] MEDS: HYDROmorphone 2 MG/1 ML VIAL IV PRN ×4 (10:24→22:28)
[2021-05-12] MEDS: DIAZEPAM 5 MG TABLET PO SCH ×3 (11:00→22:28)
[2021-05-12] MEDS: MEROPENEM 500 MG in SODIUM CHLORIDE 0.9% 100 ML IV SCH ×2 (11:01→18:37)
[2021-05-12 12:26] LABS: Hematocrit 19.3 VOL% (35.7-47.0)
[2021-05-12 12:28] LABS: Hemoglobin 6.4 GM/DL (12.0-16.0)
[2021-05-12 12:43] LABS: Albumin 1.3 G/DL (3.4-5.0); Bilirubin,Total 11.5 MG/DL (0.20-1.00); Calcium 7.4 MG/DL (8.5-10.1); Osmolality,Calculated 288.2 MOS/KG (273-304); Potassium 3.4 MMOL/L (3.5-5.1); Total Protein 4.1 G/DL (6.4-8.2)
[2021-05-12] MEDS ORDERED: SODIUM CHLORIDE 0.9% 1,000 ML IV PRN (12:49)
[2021-05-12] MEDS: PANTOPRAZOLE INJ 200 MG in SODIUM CHLORIDE 0.9% 250 ML IV SCH (16:51)
[2021-05-12] MEDS ORDERED: PHENYLEPHRINE DRIP 40 MG/250 ML PREMIX IV PRN (20:11)
[2021-05-12] MEDS ORDERED: PANTOPRAZOLE 40 MG VIAL IV SCH (21:00)
[2021-05-12] MEDS: OCTREOTIDE 500 MCG in SODIUM CHLORIDE 0.9% 100 ML IV SCH (21:08)
[2021-05-12 21:53] LABS: Hematocrit 28.5 VOL% (35.7-47.0)
[2021-05-12 21:54] LABS: Hemoglobin 9.4 GM/DL (12.0-16.0)
[2021-05-13] MEDS ORDERED: diphenhydrAMINE 50 MG/1 ML VIAL IM ONE (00:41)
[2021-05-13] MEDS: HYDROmorphone 2 MG/1 ML VIAL IV PRN ×5 (02:36→21:41)
[2021-05-13] MEDS: MEROPENEM 500 MG in SODIUM CHLORIDE 0.9% 100 ML IV SCH ×3 (02:37→17:57)
[2021-05-13] MEDS ORDERED: diphenhydrAMINE 50 MG/1 ML VIAL IV ONE (04:21)
[2021-05-13] MEDS: DIAZEPAM 5 MG TABLET PO SCH ×4 (05:48→23:33)
[2021-05-13 08:21] LABS: Basophils % 0.2 % (0.0-0.8); Eosinophils # 0.1 10*3/uL (0.0-0.87); Eosinophils % 0.4 % (0.00-10.9); Hemoglobin 8.7 GM/DL (12.0-16.0); Immature Granulocytes % 7.5 %; Immature Granulocytes Absolute 1.65 #; Lymphocytes % 13.6 % (21.3-54.2); Mean Corpuscular HGB Conc 33.5 GM/DL (32-36); Mean Corpuscular Volume 92.9 FL (87-102); Mean Platelet Volume 11.8 FL (9.6-12.0); Monocytes % 5.4 % (1.7-12.7); NRBC # 0.06 10*3/uL; Neutrophils % 72.9 % (38.7-73.9); Platelet Count 209 T/CUMM (130-400); Red Cell Distribution Width 17.4 % (9.3-17.3)
[2021-05-13] MEDS: CIPROFLOXACIN INJ 400 MG/200 ML PREMIX IV SCH ×2 (08:35→20:19)
[2021-05-13 08:42] LABS: Albumin 1.6 G/DL (3.4-5.0); Calcium 7.5 MG/DL (8.5-10.1); Osmolality,Calculated 296.1 MOS/KG (273-304); Potassium 3.3 MMOL/L (3.5-5.1); Total Protein 4.4 G/DL (6.4-8.2)
[2021-05-13 08:44] LABS: Bilirubin,Total 14.4 MG/DL (0.20-1.00)
[2021-05-13 08:54] LABS: Band Neutrophils 5 % (0-10); Eosinophils 2 % (0-10); Hypochromia Slight; Lymphocytes 10 % (20-55); Metamyelocytes 1 %; Myelocytes 1 %; Polychromasia Slight; Segmented Neutrophils 75 % (50-85); Total Cells Counted 100
[2021-05-13 08:55] LABS: Microcytosis 1+
[2021-05-13] MEDS: OCTREOTIDE 500 MCG in SODIUM CHLORIDE 0.9% 100 ML IV SCH ×2 (13:30→16:16)
[2021-05-13 16:37] LABS: Hematocrit 24.6 VOL% (35.7-47.0); Hemoglobin 8.4 GM/DL (12.0-16.0)
[2021-05-13] MEDS: PANTOPRAZOLE INJ 200 MG in SODIUM CHLORIDE 0.9% 250 ML IV SCH ×2 (17:56→19:20)
[2021-05-14] MEDS: HYDROmorphone 2 MG/1 ML VIAL IV PRN ×3 (03:00→19:11)
[2021-05-14] MEDS: MEROPENEM 500 MG in SODIUM CHLORIDE 0.9% 100 ML IV SCH ×3 (03:00→17:58)
[2021-05-14] MEDS: DIAZEPAM 5 MG TABLET PO SCH ×4 (05:51→22:10)
[2021-05-14] MEDS: OCTREOTIDE 500 MCG in SODIUM CHLORIDE 0.9% 100 ML IV SCH ×2 (06:00→12:20)
[2021-05-14 07:54] LABS: Basophils % 0.3 % (0.0-0.8); Eosinophils # 0.1 10*3/uL (0.0-0.87); Eosinophils % 0.8 % (0.00-10.9); Hematocrit 22.9 VOL% (35.7-47.0); Hemoglobin 7.7 GM/DL (12.0-16.0); Immature Granulocytes % 7.3 %; Immature Granulocytes Absolute 1.11 #; Lymphocytes # 1.9 10*3/uL (1.4-4.0); Lymphocytes % 12.4 % (21.3-54.2); Mean Corpuscular HGB Conc 33.6 GM/DL (32-36); Mean Corpuscular Volume 92.7 FL (87-102); Mean Platelet Volume 11.6 FL (9.6-12.0); Monocytes % 4.8 % (1.7-12.7); NRBC # 0.02 10*3/uL; Neutrophils % 74.4 % (38.7-73.9); Platelet Count 163 T/CUMM (130-400); Red Blood Count 2.47 MC/CUMM (3.8-5.5); White Blood Count 15.3 T/CUMM (4-12)
[2021-05-14 08:05] LABS: INR 1.9; PT Patient Result 20.9 SECS (10.5-12.0)
[2021-05-14 08:22] LABS: Albumin 1.5 G/DL (3.4-5.0); Calcium 7.3 MG/DL (8.5-10.1); Osmolality,Calculated 284.7 MOS/KG (273-304); Total Protein 4.8 G/DL (6.4-8.2)
[2021-05-14 08:29] LABS: Bilirubin,Total 13.6 MG/DL (0.20-1.00)
[2021-05-14] MEDS: CIPROFLOXACIN INJ 400 MG/200 ML PREMIX IV SCH (08:42)
[2021-05-14] MEDS: POTASSIUM CHLORIDE 20 MEQ TABLET PO PRN ×4 (08:42→17:30)
[2021-05-14 08:45] LABS: Band Neutrophils 26 % (0-10); Lymphocytes 14 % (20-55); Metamyelocytes 1 %; Myelocytes 2 %; Platelet Estimate Normal; Segmented Neutrophils 54 % (50-85); Total Cells Counted 100
[2021-05-14 08:46] LABS: Anisocytosis 2+; Burr Cells Few; Macrocytosis 1+; Smudge Cells Few
[2021-05-14] MEDS ORDERED: NICOTINE 21 MG/24 HR PATCH TRANSDERM PRN (09:32)
[2021-05-14] MEDS ORDERED: CHOLESTYRAMINE 4 GM PACK PO SCH (10:00)
[2021-05-14] MEDS: LACTULOSE 20 GM/30 ML UDCUP PO SCH ×3 (10:29→22:10)
[2021-05-14 13:55] LABS: Hematocrit 22.5 VOL% (35.7-47.0); Hemoglobin 7.4 GM/DL (12.0-16.0)
[2021-05-14] MEDS ORDERED: SODIUM CHLORIDE 0.9% 1,000 ML IV PRN (14:52)
[2021-05-14] MEDS: DESITIN 4OZ/NYSTATIN 15 GRAM MIXTURE PASTE TOP SCH ×2 (15:35→20:06)
[2021-05-14] MEDS: PANTOPRAZOLE INJ 200 MG in SODIUM CHLORIDE 0.9% 250 ML IV SCH (15:35)
[2021-05-14] MEDS: RIFAXIMIN 550 MG TABLET PO SCH (20:04)
[2021-05-14 20:38] LABS: Hematocrit 22.8 VOL% (35.7-47.0); Hemoglobin 7.5 GM/DL (12.0-16.0)
[2021-05-15] MEDS: MEROPENEM 500 MG in SODIUM CHLORIDE 0.9% 100 ML IV SCH ×3 (02:20→17:40)
[2021-05-15] MEDS: HYDROmorphone 2 MG/1 ML VIAL IV PRN ×2 (02:28→20:17)
[2021-05-15] MEDS: PANTOPRAZOLE INJ 200 MG in SODIUM CHLORIDE 0.9% 250 ML IV SCH (04:09)
[2021-05-15] MEDS: DIAZEPAM 5 MG TABLET PO SCH ×4 (04:09→23:24)
[2021-05-15] MEDS: LACTULOSE 20 GM/30 ML UDCUP PO SCH ×4 (04:09→22:15)
[2021-05-15 05:28] LABS: Basophils # 0.1 10*3/uL (0.0-0.2); Basophils % 0.4 % (0.0-0.8); Eosinophils # 0.2 10*3/uL (0.0-0.87); Eosinophils % 1.3 % (0.00-10.9); Hematocrit 25.6 VOL% (35.7-47.0); Hemoglobin 8.3 GM/DL (12.0-16.0); Immature Granulocytes Absolute 1.16 #; Lymphocytes # 1.4 10*3/uL (1.4-4.0); Lymphocytes % 11.2 % (21.3-54.2); Mean Corpuscular HGB Conc 32.4 GM/DL (32-36); Mean Corpuscular Volume 95.9 FL (87-102); Mean Platelet Volume 11.9 FL (9.6-12.0); Monocytes % 5.5 % (1.7-12.7); NRBC # 0.02 10*3/uL; Neutrophils % 72.6 % (38.7-73.9); Platelet Count 166 T/CUMM (130-400); Red Blood Count 2.67 MC/CUMM (3.8-5.5); Red Cell Distribution Width 19.9 % (9.3-17.3); White Blood Count 12.9 T/CUMM (4-12)
[2021-05-15 05:40] LABS: Albumin 1.6 G/DL (3.4-5.0); Calcium 7.7 MG/DL (8.5-10.1); Osmolality,Calculated 287.1 MOS/KG (273-304); Potassium 3.4 MMOL/L (3.5-5.1); Total Protein 5.2 G/DL (6.4-8.2)
[2021-05-15 05:43] LABS: Bilirubin,Total 14.1 MG/DL (0.20-1.00)
[2021-05-15 05:51] LABS: Band Neutrophils 4 % (0-10); Lymphocytes 10 % (20-55); Platelet Estimate Adequate; Segmented Neutrophils 83 % (50-85); Total Cells Counted 100
[2021-05-15 05:52] LABS: Hypochromia 1+; Microcytosis 1+
[2021-05-15] MEDS: POTASSIUM CHLORIDE 20 MEQ TABLET PO PRN ×2 (05:59→08:41)
[2021-05-15] MEDS: RIFAXIMIN 550 MG TABLET PO SCH ×2 (08:41→20:12)
[2021-05-15] MEDS: DESITIN 4OZ/NYSTATIN 15 GRAM MIXTURE PASTE TOP SCH ×2 (09:15→20:18)
[2021-05-15] MEDS: OCTREOTIDE 500 MCG in SODIUM CHLORIDE 0.9% 100 ML IV SCH (11:45)
[2021-05-15 12:03] LABS: Hematocrit 23.7 VOL% (35.7-47.0); Hemoglobin 7.6 GM/DL (12.0-16.0)
[2021-05-15 20:10] LABS: Hematocrit 22.2 VOL% (35.7-47.0); Hemoglobin 7.4 GM/DL (12.0-16.0)
[2021-05-15] MEDS: PANTOPRAZOLE 40 MG VIAL IV SCH (20:13)
[2021-05-16] MEDS: MEROPENEM 500 MG in SODIUM CHLORIDE 0.9% 100 ML IV SCH ×2 (01:50→10:10)
[2021-05-16] MEDS: DIAZEPAM 5 MG TABLET PO SCH ×4 (04:40→23:38)
[2021-05-16] MEDS: LACTULOSE 20 GM/30 ML UDCUP PO SCH ×4 (04:40→22:29)
[2021-05-16] MEDS: OCTREOTIDE 500 MCG in SODIUM CHLORIDE 0.9% 100 ML IV SCH ×2 (05:05→23:38)
[2021-05-16 05:57] LABS: Hematocrit 25.4 VOL% (35.7-47.0); Hemoglobin 8.1 GM/DL (12.0-16.0)
[2021-05-16] MEDS: DESITIN 4OZ/NYSTATIN 15 GRAM MIXTURE PASTE TOP SCH ×2 (09:31→22:29)
[2021-05-16] MEDS: PANTOPRAZOLE 40 MG VIAL IV SCH ×2 (10:10→22:29)
[2021-05-16] MEDS: RIFAXIMIN 550 MG TABLET PO SCH ×2 (10:10→22:29)
[2021-05-16] MEDS: HYDROmorphone 2 MG/1 ML VIAL IV PRN ×2 (10:35→18:18)
[2021-05-17] MEDS: HYDROmorphone 2 MG/1 ML VIAL IV PRN ×2 (03:40→21:00)
[2021-05-17] MEDS: LACTULOSE 20 GM/30 ML UDCUP PO SCH ×4 (05:24→21:00)
[2021-05-17] MEDS: DIAZEPAM 5 MG TABLET PO SCH ×4 (05:58→23:15)
[2021-05-17] MEDS ORDERED: LEVOFLOXACIN INJ 500 MG/100 ML PREMIX IV SCH (06:30)
[2021-05-17 06:53] LABS: Basophils # 0.1 10*3/uL (0.0-0.2); Basophils % 0.7 % (0.0-0.8); Eosinophils # 0.2 10*3/uL (0.0-0.87); Eosinophils % 1.1 % (0.00-10.9); Hematocrit 25.3 VOL% (35.7-47.0); Hemoglobin 7.9 GM/DL (12.0-16.0); Immature Granulocytes % 11.6 %; Immature Granulocytes Absolute 1.59 #; Lymphocytes # 2.1 10*3/uL (1.4-4.0); Mean Corpuscular HGB Conc 31.2 GM/DL (32-36); Mean Corpuscular Volume 99.2 FL (87-102); Mean Platelet Volume 12.2 FL (9.6-12.0); Monocytes % 8.4 % (1.7-12.7); Neutrophils % 63.2 % (38.7-73.9); Platelet Count 173 T/CUMM (130-400); Red Blood Count 2.55 MC/CUMM (3.8-5.5); Red Cell Distribution Width 22.5 % (9.3-17.3); White Blood Count 13.7 T/CUMM (4-12)
[2021-05-17 07:13] LABS: Albumin 1.6 G/DL (3.4-5.0); Calcium 7.6 MG/DL (8.5-10.1); Osmolality,Calculated 282.7 MOS/KG (273-304); Potassium 3.5 MMOL/L (3.5-5.1); Total Protein 5.4 G/DL (6.4-8.2)
[2021-05-17 07:18] LABS: Band Neutrophils 2 % (0-10); Lymphocytes 12 % (20-55); Platelet Estimate Adequate; Segmented Neutrophils 79 % (50-85); Total Cells Counted 100
[2021-05-17 07:19] LABS: Hypochromia Slight; Microcytosis Slight
[2021-05-17] MEDS: RIFAXIMIN 550 MG TABLET PO SCH ×2 (09:18→20:48)
[2021-05-17] MEDS: PANTOPRAZOLE 40 MG VIAL IV SCH ×2 (09:19→20:49)
[2021-05-17] MEDS: DESITIN 4OZ/NYSTATIN 15 GRAM MIXTURE PASTE TOP SCH ×2 (09:39→20:48)
[2021-05-17] MEDS: ACETAMINOPHEN 325 MG TABLET PO PRN ×2 (12:07→12:31)
[2021-05-18] MEDS: DIAZEPAM 5 MG TABLET PO SCH ×3 (04:53→17:33)
[2021-05-18] MEDS: LACTULOSE 20 GM/30 ML UDCUP PO SCH ×3 (04:53→16:45)
[2021-05-18 06:26] LABS: Basophils # 0.1 10*3/uL (0.0-0.2); Basophils % 0.6 % (0.0-0.8); Eosinophils # 0.2 10*3/uL (0.0-0.87); Eosinophils % 1.3 % (0.00-10.9); Hematocrit 26.1 VOL% (35.7-47.0); Hemoglobin 8.1 GM/DL (12.0-16.0); Immature Granulocytes % 9.8 %; Immature Granulocytes Absolute 1.16 #; Lymphocytes # 1.6 10*3/uL (1.4-4.0); Lymphocytes % 13.8 % (21.3-54.2); Mean Platelet Volume 11.8 FL (9.6-12.0); Monocytes % 7.7 % (1.7-12.7); NRBC # 0.02 10*3/uL; Neutrophils % 66.8 % (38.7-73.9); Platelet Count 158 T/CUMM (130-400); Red Blood Count 2.56 MC/CUMM (3.8-5.5); Red Cell Distribution Width 22.5 % (9.3-17.3); White Blood Count 11.8 T/CUMM (4-12)
[2021-05-18 06:44] LABS: Albumin 1.3 G/DL (3.4-5.0); Bilirubin,Total 11.8 MG/DL (0.20-1.00); Calcium 7.5 MG/DL (8.5-10.1); Osmolality,Calculated 277.8 MOS/KG (273-304); Potassium 3.5 MMOL/L (3.5-5.1); Total Protein 5.1 G/DL (6.4-8.2)
[2021-05-18 06:47] LABS: Band Neutrophils 5 % (0-10); Hypochromia Slight; Lymphocytes 10 % (20-55); Platelet Estimate Normal; Segmented Neutrophils 77 % (50-85); Total Cells Counted 100
[2021-05-18] MEDS: HYDROmorphone 2 MG/1 ML VIAL IV PRN (09:37)
[2021-05-18] MEDS: DESITIN 4OZ/NYSTATIN 15 GRAM MIXTURE PASTE TOP SCH (09:38)
[2021-05-18] MEDS: PANTOPRAZOLE 40 MG VIAL IV SCH (09:38)
[2021-05-18] MEDS: RIFAXIMIN 550 MG TABLET PO SCH (09:38)
[2021-05-18] MEDS: OCTREOTIDE 500 MCG in SODIUM CHLORIDE 0.9% 100 ML IV SCH (10:11)
[2021-05-18 16:16] VITALS: BP 108/57
== END 2021-05-18 18:57 | disposition home or self-care (01) | DRG 432 ==
LOC: N.ED 11:32 → N.EDINP 16:10 → SUATTDRO 16:10 → N.3E 17:02 → N.CC 05-12 09:43 → N.3E 05-16 16:26
PROVIDERS: ADMIT Internal Medicine; ATTEND Internal Medicine

== ENCOUNTER 2021-05-24 09:26 | Inpatient (IN) ==
[2021-05-24 10:50] LABS: INR 1.3; PT Patient Result 14.1 SECS (10.5-12.0); Partial Thromboplastin Time 30.8 SECS (23.8-32.1)
[2021-05-24 10:51] LABS: Albumin 1.5 G/DL (3.4-5.0); Basophils # 0.1 10*3/uL (0.0-0.2); Basophils % 0.4 % (0.0-0.8); Bilirubin,Total 8.4 MG/DL (0.20-1.00); Calcium 8.1 MG/DL (8.5-10.1); Eosinophils # 0.1 10*3/uL (0.0-0.87); Eosinophils % 1.1 % (0.00-10.9); Hematocrit 25.5 VOL% (35.7-47.0); Hemoglobin 8.2 GM/DL (12.0-16.0); Immature Granulocytes % 1.8 %; Lymphocytes % 17.7 % (21.3-54.2); Mean Corpuscular HGB Conc 32.2 GM/DL (32-36); Mean Corpuscular Volume 98.8 FL (87-102); Mean Platelet Volume 11.8 FL (9.6-12.0); Monocytes % 5.4 % (1.7-12.7); Neutrophils % 73.6 % (38.7-73.9); Platelet Count 275 T/CUMM (130-400); Potassium 3.1 MMOL/L (3.5-5.1); Red Blood Count 2.58 MC/CUMM (3.8-5.5); Red Cell Distribution Width 21.5 % (9.3-17.3); Total Protein 6.1 G/DL (6.4-8.2); White Blood Count 11.4 T/CUMM (4-12)
[2021-05-24] MEDS ORDERED: ONDANSETRON 4 MG/2 ML VIAL ONE (11:15)
[2021-05-24] MEDS ORDERED: HYDROmorphone 2 MG/1 ML VIAL ONE (11:15)
[2021-05-24] MEDS ORDERED: ONDANSETRON 4 MG/2 ML VIAL IV STA (11:25)
[2021-05-24] MEDS ORDERED: HYDROmorphone 2 MG/1 ML VIAL IV STA (11:25)
[2021-05-24] MEDS ORDERED: ONDANSETRON 4 MG/2 ML VIAL IV PRN (17:05)
[2021-05-24] MEDS ORDERED: GLUCAGON 1 MG VIAL IM PRN (17:05)
[2021-05-24] MEDS ORDERED: ALBUTEROL 2.5 MG/3 ML NEB RESP TX PRN (17:05)
[2021-05-24] MEDS ORDERED: DEXTROSE 50% 25 GM/50 ML SYRINGE IV PRN (17:05)
[2021-05-24] MEDS ORDERED: hydrALAZINE 20 MG/1 ML VIAL IV PRN (17:05)
[2021-05-24] MEDS ORDERED: POTASSIUM CHLORIDE 20 MEQ TABLET PO PRN (17:10)
[2021-05-24] MEDS: LACTULOSE 20 GM/30 ML UDCUP PO SCH (18:29)
[2021-05-25] MEDS: RIFAXIMIN 550 MG TABLET PO SCH ×3 (00:41→21:29)
[2021-05-25] MEDS: LACTULOSE 20 GM/30 ML UDCUP PO SCH ×4 (00:42→21:27)
[2021-05-25] MEDS ORDERED: HYDROmorphone 2 MG/1 ML VIAL IV ONE (05:21)
[2021-05-25 06:49] LABS: Basophils # 0.1 10*3/uL (0.0-0.2); Basophils % 0.4 % (0.0-0.8); Eosinophils # 0.1 10*3/uL (0.0-0.87); Eosinophils % 0.9 % (0.00-10.9); Hematocrit 28.4 VOL% (35.7-47.0); Hemoglobin 8.7 GM/DL (12.0-16.0); Immature Granulocytes % 1.3 %; Immature Granulocytes Absolute 0.17 #; Lymphocytes # 1.5 10*3/uL (1.4-4.0); Lymphocytes % 11.7 % (21.3-54.2); Mean Corpuscular HGB Conc 30.6 GM/DL (32-36); Mean Corpuscular Volume 100.4 FL (87-102); Mean Platelet Volume 11.7 FL (9.6-12.0); Monocytes % 5.5 % (1.7-12.7); Neutrophils % 80.2 % (38.7-73.9); Platelet Count 300 T/CUMM (130-400); Red Blood Count 2.83 MC/CUMM (3.8-5.5); Red Cell Distribution Width 20.9 % (9.3-17.3)
[2021-05-25 07:09] LABS: Albumin 1.7 G/DL (3.4-5.0); Bilirubin,Total 9.7 MG/DL (0.20-1.00); Calcium 8.4 MG/DL (8.5-10.1); Osmolality,Calculated 281.7 MOS/KG (273-304); Potassium 3.2 MMOL/L (3.5-5.1); Total Protein 6.8 G/DL (6.4-8.2)
[2021-05-25 07:11] LABS: Band Neutrophils 9 % (0-10); Eosinophils 2 % (0-10); Lymphocytes 14 % (20-55); Platelet Estimate Normal; Segmented Neutrophils 72 % (50-85); Total Cells Counted 100
[2021-05-25 07:12] LABS: Anisocytosis 1+; Burr Cells Few; Macrocytosis 1+; Target Cells Few
[2021-05-25] MEDS ORDERED: PANTOPRAZOLE 40 MG TABLET PO SCH (09:00)
[2021-05-25] MEDS ORDERED: LIDOCAINE 2% 5 ML VIAL ONE (11:21)
[2021-05-25] MEDS ORDERED: propofoL 200 MG/20 ML VIAL IV ONE (11:21)
[2021-05-25] MEDS ORDERED: KETAMINE 500 MG/10 ML VIAL ONE (12:23)
[2021-05-25] MEDS ORDERED: FAMOTIDINE 20 MG/2 ML VIAL IV ONE (12:38)
[2021-05-25] MEDS ORDERED: ONDANSETRON 4 MG/2 ML VIAL ONE (12:53)
[2021-05-25] MEDS ORDERED: ALBUTEROL/IPRATROPIUM 3 ML NEB RESP TX ONE ×2 (13:04→13:06)
[2021-05-25] MEDS ORDERED: DEXAMETHASONE 4 MG/1 ML VIAL ONE (13:12)
[2021-05-25] MEDS: POTASSIUM CHLORIDE 20 MEQ TABLET PO SCH (14:51)
[2021-05-25] MEDS: PANTOPRAZOLE 40 MG VIAL IV SCH (21:28)
[2021-05-26] MEDS: LACTULOSE 20 GM/30 ML UDCUP PO SCH ×5 (03:05→21:34)
[2021-05-26 06:52] LABS: Basophils % 0.1 % (0.0-0.8); Hematocrit 22.8 VOL% (35.7-47.0); Hemoglobin 7.3 GM/DL (12.0-16.0); Immature Granulocytes % 1.4 %; Immature Granulocytes Absolute 0.15 #; Lymphocytes # 1.1 10*3/uL (1.4-4.0); Lymphocytes % 9.9 % (21.3-54.2); Mean Corpuscular Volume 97.9 FL (87-102); Mean Platelet Volume 11.6 FL (9.6-12.0); Monocytes % 1.3 % (1.7-12.7); Neutrophils % 87.3 % (38.7-73.9); Platelet Count 238 T/CUMM (130-400); Red Blood Count 2.33 MC/CUMM (3.8-5.5); Red Cell Distribution Width 20.8 % (9.3-17.3); White Blood Count 10.6 T/CUMM (4-12)
[2021-05-26 07:18] LABS: Albumin 1.2 G/DL (3.4-5.0); Bilirubin,Total 7.5 MG/DL (0.20-1.00); Calcium 8.2 MG/DL (8.5-10.1); Potassium 3.6 MMOL/L (3.5-5.1); Total Protein 5.5 G/DL (6.4-8.2)
[2021-05-26] MEDS: RIFAXIMIN 550 MG TABLET PO SCH ×2 (10:02→21:34)
[2021-05-26] MEDS: POTASSIUM CHLORIDE 20 MEQ TABLET PO SCH (10:02)
[2021-05-26] MEDS: PANTOPRAZOLE 40 MG VIAL IV SCH ×2 (10:02→21:35)
[2021-05-26 10:47] LABS: Hematocrit 21.5 VOL% (35.7-47.0); Hemoglobin 6.9 GM/DL (12.0-16.0)
[2021-05-26] MEDS ORDERED: SODIUM CHLORIDE 0.9% 1,000 ML IV PRN (12:30)
[2021-05-26] MEDS: SODIUM BICARBONATE 650 MG TABLET PO SCH ×2 (12:51→21:34)
[2021-05-26] MEDS ORDERED: HYDROmorphone 2 MG/1 ML VIAL IV ONE (16:17)
[2021-05-27] MEDS ORDERED: HYDROmorphone 2 MG/1 ML VIAL IV ONE (02:59)
[2021-05-27] MEDS: LACTULOSE 20 GM/30 ML UDCUP PO SCH ×4 (03:57→20:50)
[2021-05-27 06:42] LABS: Basophils % 0.1 % (0.0-0.8); Hematocrit 33.1 VOL% (35.7-47.0); Immature Granulocytes % 1.5 %; Immature Granulocytes Absolute 0.28 #; Lymphocytes # 1.9 10*3/uL (1.4-4.0); Lymphocytes % 10.2 % (21.3-54.2); Mean Corpuscular HGB Conc 31.7 GM/DL (32-36); Mean Corpuscular Volume 95.9 FL (87-102); Monocytes % 3.7 % (1.7-12.7); Neutrophils % 84.5 % (38.7-73.9); Platelet Count 260 T/CUMM (130-400); Red Cell Distribution Width 20.8 % (9.3-17.3); White Blood Count 19.1 T/CUMM (4-12)
[2021-05-27 07:04] LABS: Hemoglobin 10.5 GM/DL (12.0-16.0); Red Blood Count 3.45 MC/CUMM (3.8-5.5)
[2021-05-27 07:05] LABS: Albumin 1.7 G/DL (3.4-5.0); Calcium 8.5 MG/DL (8.5-10.1); Osmolality,Calculated 292.8 MOS/KG (273-304); Potassium 3.7 MMOL/L (3.5-5.1); Total Protein 6.4 G/DL (6.4-8.2)
[2021-05-27] MEDS: POTASSIUM CHLORIDE 20 MEQ TABLET PO SCH (10:04)
[2021-05-27] MEDS: SODIUM BICARBONATE 650 MG TABLET PO SCH ×2 (10:04→20:50)
[2021-05-27] MEDS: PANTOPRAZOLE 40 MG VIAL IV SCH ×2 (10:04→20:49)
[2021-05-27] MEDS: RIFAXIMIN 550 MG TABLET PO SCH ×2 (10:04→20:50)
[2021-05-27] MEDS: CIPROFLOXACIN INJ 400 MG/200 ML PREMIX IV SCH ×2 (10:05→20:51)
[2021-05-28] MEDS: LACTULOSE 20 GM/30 ML UDCUP PO SCH ×4 (04:56→20:36)
[2021-05-28 06:01] LABS: Basophils % 0.2 % (0.0-0.8); Eosinophils # 0.2 10*3/uL (0.0-0.87); Eosinophils % 1.1 % (0.00-10.9); Hematocrit 33.4 VOL% (35.7-47.0); Hemoglobin 10.6 GM/DL (12.0-16.0); Immature Granulocytes % 1.1 %; Immature Granulocytes Absolute 0.15 #; Lymphocytes # 2.2 10*3/uL (1.4-4.0); Lymphocytes % 16.5 % (21.3-54.2); Mean Corpuscular HGB Conc 31.7 GM/DL (32-36); Mean Corpuscular Volume 96.3 FL (87-102); Mean Platelet Volume 12.2 FL (9.6-12.0); Monocytes % 5.9 % (1.7-12.7); Neutrophils % 75.2 % (38.7-73.9); Platelet Count 202 T/CUMM (130-400); Red Blood Count 3.47 MC/CUMM (3.8-5.5); Red Cell Distribution Width 21.4 % (9.3-17.3); White Blood Count 13.1 T/CUMM (4-12)
[2021-05-28 06:30] LABS: Albumin 1.5 G/DL (3.4-5.0); Bilirubin,Total 6.2 MG/DL (0.20-1.00); Calcium 8.1 MG/DL (8.5-10.1); Potassium 3.7 MMOL/L (3.5-5.1); Total Protein 5.9 G/DL (6.4-8.2)
[2021-05-28] MEDS: POTASSIUM CHLORIDE 20 MEQ TABLET PO SCH (09:52)
[2021-05-28] MEDS: RIFAXIMIN 550 MG TABLET PO SCH ×2 (09:52→20:36)
[2021-05-28] MEDS: SODIUM BICARBONATE 650 MG TABLET PO SCH ×2 (09:52→20:36)
[2021-05-28] MEDS: PANTOPRAZOLE 40 MG VIAL IV SCH (09:53)
[2021-05-28] MEDS: CIPROFLOXACIN INJ 400 MG/200 ML PREMIX IV SCH ×2 (10:02→20:36)
[2021-05-28] MEDS ORDERED: MAGNESIUM SULF RIDER 4 GM/100 ML PREMIX IV PRN (10:56)
[2021-05-28] MEDS ORDERED: MAGNESIUM SULF RIDER 2 GM/50 ML PREMIX IV PRN (10:56)
[2021-05-28] MEDS: traMADol 50 MG TABLET PO PRN (12:13)
[2021-05-28] MEDS ORDERED: ALBUMIN 25% 50 GM/200 ML VIAL IV ONE (14:11)
[2021-05-28] MEDS: SPIRONOLACTONE 50 MG TABLET PO SCH (15:04)
[2021-05-28] MEDS: buPROPion 75 MG TABLET PO SCH (15:04)
[2021-05-28] MEDS: FUROSEMIDE 20 MG TABLET PO SCH (15:04)
[2021-05-28] MEDS: PANTOPRAZOLE 40 MG TABLET PO SCH (20:36)
[2021-05-29] MEDS: LACTULOSE 20 GM/30 ML UDCUP PO SCH ×4 (02:27→18:59)
[2021-05-29] MEDS: traMADol 50 MG TABLET PO PRN (02:27)
[2021-05-29 05:47] LABS: Basophils % 0.5 % (0.0-0.8); Eosinophils # 0.2 10*3/uL (0.0-0.87); Eosinophils % 2.1 % (0.00-10.9); Hematocrit 27.2 VOL% (35.7-47.0); Hemoglobin 8.7 GM/DL (12.0-16.0); Immature Granulocytes % 1.4 %; Immature Granulocytes Absolute 0.12 #; Lymphocytes % 24.1 % (21.3-54.2); Mean Corpuscular Volume 96.1 FL (87-102); Mean Platelet Volume 11.6 FL (9.6-12.0); Monocytes % 7.8 % (1.7-12.7); Neutrophils % 64.1 % (38.7-73.9); Platelet Count 144 T/CUMM (130-400); Red Blood Count 2.83 MC/CUMM (3.8-5.5); Red Cell Distribution Width 21.3 % (9.3-17.3); White Blood Count 8.4 T/CUMM (4-12)
[2021-05-29 05:49] LABS: Bilirubin,Total 5.2 MG/DL (0.20-1.00); Osmolality,Calculated 284.1 MOS/KG (273-304); Potassium 3.4 MMOL/L (3.5-5.1); Total Protein 5.4 G/DL (6.4-8.2)
[2021-05-29] MEDS: buPROPion 75 MG TABLET PO SCH (08:57)
[2021-05-29] MEDS: POTASSIUM CHLORIDE 20 MEQ TABLET PO SCH (08:57)
[2021-05-29] MEDS: FUROSEMIDE 20 MG TABLET PO SCH (08:57)
[2021-05-29] MEDS: PANTOPRAZOLE 40 MG TABLET PO SCH ×2 (08:57→21:48)
[2021-05-29] MEDS: RIFAXIMIN 550 MG TABLET PO SCH ×2 (08:57→21:48)
[2021-05-29] MEDS: SODIUM BICARBONATE 650 MG TABLET PO SCH ×2 (08:57→21:48)
[2021-05-29] MEDS: SPIRONOLACTONE 50 MG TABLET PO SCH (08:58)
[2021-05-29] MEDS: CIPROFLOXACIN INJ 400 MG/200 ML PREMIX IV SCH ×2 (10:59→21:48)
[2021-05-30] MEDS: LACTULOSE 20 GM/30 ML UDCUP PO SCH ×3 (01:34→18:23)
[2021-05-30 04:36] LABS: Basophils % 0.4 % (0.0-0.8); Eosinophils # 0.2 10*3/uL (0.0-0.87); Eosinophils % 2.3 % (0.00-10.9); Hemoglobin 9.2 GM/DL (12.0-16.0); Immature Granulocytes Absolute 0.17 #; Lymphocytes # 1.8 10*3/uL (1.4-4.0); Lymphocytes % 21.4 % (21.3-54.2); Mean Corpuscular HGB Conc 31.7 GM/DL (32-36); Mean Platelet Volume 11.8 FL (9.6-12.0); Monocytes % 8.6 % (1.7-12.7); Neutrophils % 65.3 % (38.7-73.9); Platelet Count 148 T/CUMM (130-400); Red Blood Count 3.02 MC/CUMM (3.8-5.5); Red Cell Distribution Width 21.2 % (9.3-17.3); White Blood Count 8.3 T/CUMM (4-12)
[2021-05-30 04:54] LABS: Albumin 1.9 G/DL (3.4-5.0); Bilirubin,Total 5.1 MG/DL (0.20-1.00); Calcium 7.8 MG/DL (8.5-10.1); Osmolality,Calculated 280.4 MOS/KG (273-304); Potassium 3.7 MMOL/L (3.5-5.1); Total Protein 5.6 G/DL (6.4-8.2)
[2021-05-30] MEDS: CIPROFLOXACIN INJ 400 MG/200 ML PREMIX IV SCH ×2 (08:59→20:50)
[2021-05-30] MEDS: buPROPion 75 MG TABLET PO SCH (09:00)
[2021-05-30] MEDS: SODIUM BICARBONATE 650 MG TABLET PO SCH ×2 (09:00→20:51)
[2021-05-30] MEDS ORDERED: BUMETANIDE 1 MG TABLET PO SCH (09:00)
[2021-05-30] MEDS: RIFAXIMIN 550 MG TABLET PO SCH ×2 (09:00→20:51)
[2021-05-30] MEDS: PANTOPRAZOLE 40 MG TABLET PO SCH ×2 (09:01→20:51)
[2021-05-30] MEDS: SPIRONOLACTONE 50 MG TABLET PO SCH (09:01)
[2021-05-30] MEDS: POTASSIUM CHLORIDE 20 MEQ TABLET PO SCH (09:02)
[2021-05-30] MEDS ORDERED: TUBERCULIN SKIN TEST 0.1 ML SYRINGE INTRADERM ONE (16:20)
[2021-05-31] MEDS: LACTULOSE 20 GM/30 ML UDCUP PO SCH (01:40)
[2021-05-31 05:41] LABS: Basophils % 0.1 % (0.0-0.8); Eosinophils # 0.2 10*3/uL (0.0-0.87); Eosinophils % 2.4 % (0.00-10.9); Hematocrit 28.8 VOL% (35.7-47.0); Hemoglobin 9.3 GM/DL (12.0-16.0); Immature Granulocytes % 2.2 %; Immature Granulocytes Absolute 0.16 #; Lymphocytes # 1.3 10*3/uL (1.4-4.0); Lymphocytes % 17.9 % (21.3-54.2); Mean Corpuscular HGB Conc 32.3 GM/DL (32-36); Mean Platelet Volume 12.3 FL (9.6-12.0); Monocytes % 8.8 % (1.7-12.7); Neutrophils % 68.6 % (38.7-73.9); Platelet Count 123 T/CUMM (130-400); Red Blood Count 3.03 MC/CUMM (3.8-5.5); Red Cell Distribution Width 21.1 % (9.3-17.3); White Blood Count 7.4 T/CUMM (4-12)
[2021-05-31] MEDS: PANTOPRAZOLE 40 MG TABLET PO SCH (05:49)
[2021-05-31 05:59] LABS: Albumin 1.8 G/DL (3.4-5.0); Bilirubin,Total 4.2 MG/DL (0.20-1.00); Calcium 7.9 MG/DL (8.5-10.1); Osmolality,Calculated 275.7 MOS/KG (273-304); Potassium 3.2 MMOL/L (3.5-5.1); Total Protein 5.6 G/DL (6.4-8.2)
[2021-05-31 08:04] VITALS: BP 97/59
== END 2021-05-31 08:35 | disposition left against medical advice (07) | DRG 432 ==
LOC: EDBD → EDUNIT# → N.ED 09:26 → N.TELEN 09:26 → SUATTDRO 05-25 13:49
PROVIDERS: ADMIT Hospitalist; ATTEND Internal Medicine

== ENCOUNTER 2021-09-24 11:39 | Inpatient (IN) ==
[2021-09-24] MEDS ORDERED: ONDANSETRON 4 MG/2 ML VIAL IV STA (16:39)
[2021-09-24] MEDS ORDERED: HYDROmorphone 1 MG/1 ML SYRINGE IV STA (16:39)
[2021-09-24] MEDS ORDERED: SODIUM CHLORIDE 0.9% 1,000 ML IV STA ×2 (16:39→18:36)
[2021-09-24 18:10] LABS: Basophils % 0.3 % (0.0-0.8); Eosinophils % 0.3 % (0.00-10.9); Hematocrit 33.8 VOL% (35.7-47.0); Hemoglobin 11.4 GM/DL (12.0-16.0); Immature Granulocytes % 0.5 %; Immature Granulocytes Absolute 0.04 #; Lymphocytes # 0.9 10*3/uL (1.4-4.0); Lymphocytes % 12.4 % (21.3-54.2); Mean Corpuscular HGB Conc 33.7 GM/DL (32-36); Mean Corpuscular Volume 98.5 FL (87-102); Mean Platelet Volume 10.9 FL (9.6-12.0); Monocytes # 0.5 10*3/uL (0.11-0.8); Monocytes % 6.3 % (1.7-12.7); Neutrophils % 80.2 % (38.7-73.9); Platelet Count 108 T/CUMM (130-400); Red Blood Count 3.43 MC/CUMM (3.8-5.5); Red Cell Distribution Width 18.1 % (9.3-17.3); White Blood Count 7.6 T/CUMM (4-12)
[2021-09-24 18:16] LABS: Albumin 3.8 G/DL (3.4-5.0); Bilirubin,Total 3.8 MG/DL (0.20-1.00); Calcium 9.4 MG/DL (8.5-10.1); Osmolality,Calculated 256.8 MOS/KG (273-304); Potassium 3.2 MMOL/L (3.5-5.1); Total Protein 8.3 G/DL (6.4-8.2)
[2021-09-24] MEDS ORDERED: METOCLOPRAMIDE 10 MG/2 ML VIAL IV STA (19:00)
[2021-09-24] MEDS ORDERED: LEVOFLOXACIN INJ 750 MG/150 ML PREMIX IV STA (20:29)
[2021-09-24] MEDS ORDERED: LACTULOSE 20 GM/30 ML UDCUP PO PRN (20:36)
[2021-09-24] MEDS ORDERED: guaiFENesin/DM ER 600-30 MG TABLET PO PRN (21:28)
[2021-09-24] MEDS ORDERED: ACETAMINOPHEN 325 MG TABLET PO PRN (21:28)
[2021-09-24] MEDS ORDERED: GLUCAGON 1 MG VIAL IM PRN (21:28)
[2021-09-24] MEDS ORDERED: hydrALAZINE 20 MG/1 ML VIAL IV PRN (21:28)
[2021-09-24] MEDS ORDERED: DEXTROSE 10% 250 ML BAG IV PRN (21:28)
[2021-09-24] MEDS ORDERED: NICOTINE 21 MG/24 HR PATCH TRANSDERM PRN (21:28)
[2021-09-24] MEDS: metroNIDAZOLE INJ 500 MG/100 ML PREMIX IV SCH (21:58)
[2021-09-24] MEDS: diphenhydrAMINE CAP 25 MG CAPSULE PO PRN (21:58)
[2021-09-24] MEDS: SODIUM CHLORIDE 0.9% 1,000 ML IV SCH (22:08)
[2021-09-24] MEDS: ONDANSETRON 4 MG/2 ML VIAL IV PRN (22:29)
[2021-09-25 00:20] LABS: Bacteria,Urine Occasional /HPF (Few); Hyaline Casts,Urine 1 /LPF (0-3); Mucus,Urine Occasional /LPF (Occasional); RBC,Urine 1 /HPF (0-4); Squamous Epithelial Cell,Urine Occasional /HPF (0-10)
[2021-09-25 00:22] LABS: Urine Appearance Clear (Clear); Urine Color Dark Yellow (Yellow)
[2021-09-25 00:23] LABS: Bilirubin,Urine Moderate mg/dL (Negative); Blood, Urine Negative (Negative); Glucose,Urine (UA) 100 mg/dL (Negative); Ketones,Urine Negative (Negative); Nitrite,Urine Negative (Negative); Protein,Urine 30 mg/dL (Negative); Urine Urobilinogen > 8.0 eU/dL (<2.0)
[2021-09-25 02:11] LABS: Basophils % 0.1 % (0.0-0.8); Eosinophils % 0.1 % (0.00-10.9); Hematocrit 33.9 VOL% (35.7-47.0); Hemoglobin 11.3 GM/DL (12.0-16.0); Immature Granulocytes % 0.5 %; Immature Granulocytes Absolute 0.04 #; Lymphocytes # 0.8 10*3/uL (1.4-4.0); Lymphocytes % 10.3 % (21.3-54.2); Mean Corpuscular HGB Conc 33.3 GM/DL (32-36); Mean Platelet Volume 11.3 FL (9.6-12.0); Monocytes # 0.4 10*3/uL (0.11-0.8); Monocytes % 4.6 % (1.7-12.7); Neutrophils % 84.4 % (38.7-73.9); Platelet Count 98 T/CUMM (130-400); Red Blood Count 3.39 MC/CUMM (3.8-5.5); Red Cell Distribution Width 18.2 % (9.3-17.3); White Blood Count 7.7 T/CUMM (4-12)
[2021-09-25 02:27] LABS: Calcium 8.2 MG/DL (8.5-10.1); Osmolality,Calculated 264.2 MOS/KG (273-304); Potassium 3.2 MMOL/L (3.5-5.1)
[2021-09-25] MEDS: metroNIDAZOLE INJ 500 MG/100 ML PREMIX IV SCH ×3 (04:59→20:04)
[2021-09-25] MEDS: ONDANSETRON 4 MG/2 ML VIAL IV PRN ×3 (06:03→22:38)
[2021-09-25] MEDS: HEPARIN 5,000 UNIT/1 ML VIAL SUBCUT SCH ×2 (08:51→21:07)
[2021-09-25] MEDS: RIFAXIMIN 550 MG TABLET PO SCH ×2 (08:51→21:06)
[2021-09-25] MEDS ORDERED: MAGNESIUM SULF RIDER 2 GM/50 ML PREMIX IV PRN (08:51)
[2021-09-25] MEDS ORDERED: MAGNESIUM SULF RIDER 4 GM/100 ML PREMIX IV PRN (08:51)
[2021-09-25] MEDS ORDERED: MORPHINE 2 MG/1 ML SYRINGE IV PRN (09:13)
[2021-09-25] MEDS: LACTULOSE 20 GM/30 ML UDCUP PO SCH ×4 (09:30→20:04)
[2021-09-25] MEDS: MULTIVITAMIN (CENTRUM) TABLET PO SCH (12:18)
[2021-09-25] MEDS: FOLIC ACID 1 MG TABLET PO SCH (12:18)
[2021-09-25] MEDS: HYDROmorphone 1 MG/1 ML SYRINGE IV PRN ×2 (13:20→20:08)
[2021-09-25] MEDS: SODIUM CHLORIDE 0.9% 1,000 ML IV SCH (16:22)
[2021-09-25] MEDS: PANTOPRAZOLE 40 MG VIAL IV SCH (21:06)
[2021-09-25] MEDS: LEVOFLOXACIN INJ 750 MG/150 ML PREMIX IV SCH (21:07)
[2021-09-25] MEDS: diphenhydrAMINE CAP 25 MG CAPSULE PO PRN (22:36)
[2021-09-26] MEDS: HYDROmorphone 1 MG/1 ML SYRINGE IV PRN ×7 (00:20→23:54)
[2021-09-26] MEDS: LACTULOSE 20 GM/30 ML UDCUP PO SCH ×3 (03:21→19:18)
[2021-09-26 04:33] LABS: Basophils % 0.2 % (0.0-0.8); Eosinophils % 0.5 % (0.00-10.9); Hematocrit 33.4 VOL% (35.7-47.0); Hemoglobin 10.9 GM/DL (12.0-16.0); Immature Granulocytes % 0.7 %; Immature Granulocytes Absolute 0.03 #; Lymphocytes # 0.7 10*3/uL (1.4-4.0); Lymphocytes % 15.9 % (21.3-54.2); Mean Corpuscular HGB Conc 32.6 GM/DL (32-36); Mean Corpuscular Volume 101.2 FL (87-102); Mean Platelet Volume 11.4 FL (9.6-12.0); Monocytes # 0.2 10*3/uL (0.11-0.8); Monocytes % 5.1 % (1.7-12.7); Neutrophils % 77.6 % (38.7-73.9); Platelet Count 77 T/CUMM (130-400); Red Cell Distribution Width 18.1 % (9.3-17.3); White Blood Count 4.1 T/CUMM (4-12)
[2021-09-26 04:52] LABS: Albumin 2.9 G/DL (3.4-5.0); Bilirubin,Total 4.7 MG/DL (0.20-1.00); Calcium 8.3 MG/DL (8.5-10.1); Osmolality,Calculated 263.2 MOS/KG (273-304); Total Protein 6.3 G/DL (6.4-8.2)
[2021-09-26] MEDS: metroNIDAZOLE INJ 500 MG/100 ML PREMIX IV SCH ×3 (05:27→21:22)
[2021-09-26] MEDS: MULTIVITAMIN (CENTRUM) TABLET PO SCH (09:33)
[2021-09-26] MEDS: THIAMINE 100 MG TABLET PO SCH (09:33)
[2021-09-26] MEDS: PANTOPRAZOLE 40 MG VIAL IV SCH ×2 (09:34→21:21)
[2021-09-26] MEDS: HEPARIN 5,000 UNIT/1 ML VIAL SUBCUT SCH ×2 (09:34→20:42)
[2021-09-26] MEDS: RIFAXIMIN 550 MG TABLET PO SCH ×2 (09:34→20:42)
[2021-09-26] MEDS: FOLIC ACID 1 MG TABLET PO SCH (09:34)
[2021-09-26] MEDS: ONDANSETRON 4 MG/2 ML VIAL IV PRN ×2 (09:37→16:01)
[2021-09-26] MEDS: SODIUM CHLORIDE 0.9% 1,000 ML IV SCH (09:39)
[2021-09-26] MEDS ORDERED: POTASSIUM CHLORIDE 20 MEQ TABLET PO ONE (10:00)
[2021-09-26] MEDS ORDERED: MAGNESIUM OXIDE 400 MG TABLET PO ONE (10:00)
[2021-09-26] MEDS: diphenhydrAMINE CAP 25 MG CAPSULE PO PRN ×2 (12:34→23:54)
[2021-09-26] MEDS: ZALEPLON 5 MG CAPSULE PO PRN (20:42)
[2021-09-26] MEDS: LEVOFLOXACIN INJ 750 MG/150 ML PREMIX IV SCH (22:10)
[2021-09-26] MEDS: METOCLOPRAMIDE 10 MG/2 ML VIAL IV SCH (23:54)
[2021-09-27] MEDS: LACTULOSE 20 GM/30 ML UDCUP PO SCH ×5 (02:49→23:30)
[2021-09-27] MEDS: HYDROmorphone 1 MG/1 ML SYRINGE IV PRN ×5 (04:36→20:46)
[2021-09-27] MEDS: metroNIDAZOLE INJ 500 MG/100 ML PREMIX IV SCH (04:38)
[2021-09-27] MEDS: METOCLOPRAMIDE 10 MG/2 ML VIAL IV SCH ×3 (05:21→17:05)
[2021-09-27 05:33] LABS: Basophils % 0.2 % (0.0-0.8); Eosinophils # 0.1 10*3/uL (0.0-0.87); Eosinophils % 1.4 % (0.00-10.9); Hematocrit 27.7 VOL% (35.7-47.0); Hemoglobin 9.5 GM/DL (12.0-16.0); Immature Granulocytes % 0.5 %; Immature Granulocytes Absolute 0.02 #; Lymphocytes # 0.7 10*3/uL (1.4-4.0); Lymphocytes % 15.7 % (21.3-54.2); Mean Corpuscular HGB Conc 34.3 GM/DL (32-36); Mean Corpuscular Volume 98.9 FL (87-102); Monocytes # 0.3 10*3/uL (0.11-0.8); Monocytes % 7.3 % (1.7-12.7); Neutrophils % 74.9 % (38.7-73.9); Platelet Count 88 T/CUMM (130-400); Red Cell Distribution Width 18.1 % (9.3-17.3); White Blood Count 4.4 T/CUMM (4-12)
[2021-09-27 05:54] LABS: Albumin 2.8 G/DL (3.4-5.0); Bilirubin,Total 3.6 MG/DL (0.20-1.00); Calcium 8.9 MG/DL (8.5-10.1); Osmolality,Calculated 269.8 MOS/KG (273-304); Potassium 3.4 MMOL/L (3.5-5.1); Total Protein 6.1 G/DL (6.4-8.2)
[2021-09-27 05:55] LABS: Platelet Estimate Decreased
[2021-09-27] MEDS: PANTOPRAZOLE 40 MG VIAL IV SCH ×2 (08:23→20:46)
[2021-09-27] MEDS: MULTIVITAMIN (CENTRUM) TABLET PO SCH (08:23)
[2021-09-27] MEDS: RIFAXIMIN 550 MG TABLET PO SCH ×2 (08:23→20:46)
[2021-09-27] MEDS: HEPARIN 5,000 UNIT/1 ML VIAL SUBCUT SCH ×2 (08:23→20:48)
[2021-09-27] MEDS: FOLIC ACID 1 MG TABLET PO SCH (08:23)
[2021-09-27] MEDS: THIAMINE 100 MG TABLET PO SCH (08:24)
[2021-09-27] MEDS ORDERED: POTASSIUM CHLORIDE 20 MEQ TABLET PO ONE (09:15)
[2021-09-27] MEDS: HYDROcod/ACETAMIN 7.5-325 MG/15 ML UDCUP PO PRN ×2 (11:17→22:36)
[2021-09-27] MEDS: POTASSIUM CHLORIDE 20 MEQ TABLET PO PRN (13:06)
[2021-09-27] MEDS: metroNIDAZOLE 500 MG TABLET PO SCH ×2 (15:05→20:46)
[2021-09-27] MEDS: LEVOFLOXACIN 750 MG TABLET PO SCH (15:05)
[2021-09-27] MEDS: SODIUM CHLORIDE 0.9% 1,000 ML IV SCH (16:53)
[2021-09-27] MEDS: diphenhydrAMINE CAP 25 MG CAPSULE PO PRN (20:46)
[2021-09-27] MEDS: ZALEPLON 5 MG CAPSULE PO PRN (20:46)
[2021-09-28] MEDS: METOCLOPRAMIDE 10 MG/2 ML VIAL IV SCH ×4 (00:19→18:08)
[2021-09-28 05:04] LABS: Basophils % 0.2 % (0.0-0.8); Hematocrit 27.2 VOL% (35.7-47.0); Hemoglobin 9.3 GM/DL (12.0-16.0); Immature Granulocytes % 1.2 %; Immature Granulocytes Absolute 0.05 #; Lymphocytes # 0.6 10*3/uL (1.4-4.0); Lymphocytes % 15.4 % (21.3-54.2); Mean Corpuscular HGB Conc 34.2 GM/DL (32-36); Mean Corpuscular Volume 99.3 FL (87-102); Mean Platelet Volume 11.5 FL (9.6-12.0); Monocytes # 0.4 10*3/uL (0.11-0.8); Monocytes % 9.9 % (1.7-12.7); Neutrophils % 72.3 % (38.7-73.9); Platelet Count 83 T/CUMM (130-400); Red Blood Count 2.74 MC/CUMM (3.8-5.5); White Blood Count 4.2 T/CUMM (4-12)
[2021-09-28] MEDS: HYDROmorphone 1 MG/1 ML SYRINGE IV PRN ×5 (05:12→20:35)
[2021-09-28 05:19] LABS: Albumin 2.5 G/DL (3.4-5.0); Bilirubin,Total 3.1 MG/DL (0.20-1.00); Calcium 8.4 MG/DL (8.5-10.1); Osmolality,Calculated 269.8 MOS/KG (273-304); Potassium 3.7 MMOL/L (3.5-5.1); Total Protein 5.5 G/DL (6.4-8.2)
[2021-09-28 05:35] LABS: Target Cells Few
[2021-09-28 05:36] LABS: Elliptocytes Few; Platelet Estimate Decreased; Stomatocytes Few
[2021-09-28] MEDS ORDERED: MAGNESIUM SULF RIDER 2 GM/50 ML PREMIX IV ONE (09:00)
[2021-09-28] MEDS: MULTIVITAMIN (CENTRUM) TABLET PO SCH (09:07)
[2021-09-28] MEDS: LEVOFLOXACIN 750 MG TABLET PO SCH (09:08)
[2021-09-28] MEDS: RIFAXIMIN 550 MG TABLET PO SCH ×2 (09:08→20:25)
[2021-09-28] MEDS: metroNIDAZOLE 500 MG TABLET PO SCH ×3 (09:09→20:25)
[2021-09-28] MEDS: FOLIC ACID 1 MG TABLET PO SCH (09:09)
[2021-09-28] MEDS: LACTULOSE 20 GM/30 ML UDCUP PO SCH ×3 (09:09→20:24)
[2021-09-28] MEDS: THIAMINE 100 MG TABLET PO SCH (09:09)
[2021-09-28] MEDS: HEPARIN 5,000 UNIT/1 ML VIAL SUBCUT SCH ×2 (09:10→20:24)
[2021-09-28] MEDS: PANTOPRAZOLE 40 MG VIAL IV SCH ×2 (09:10→20:24)
[2021-09-28] MEDS: SODIUM CHLORIDE 0.9% 1,000 ML IV SCH (09:11)
[2021-09-28] MEDS: HYDROcod/ACETAMIN 7.5-325 MG/15 ML UDCUP PO PRN (18:14)
[2021-09-28] MEDS: ZALEPLON 5 MG CAPSULE PO PRN (20:35)
[2021-09-29] MEDS: METOCLOPRAMIDE 10 MG/2 ML VIAL IV SCH ×5 (01:11→23:04)
[2021-09-29] MEDS: LACTULOSE 20 GM/30 ML UDCUP PO SCH ×5 (01:11→20:38)
[2021-09-29] MEDS: HYDROmorphone 1 MG/1 ML SYRINGE IV PRN ×5 (05:28→20:38)
[2021-09-29] MEDS: THIAMINE 100 MG TABLET PO SCH (09:30)
[2021-09-29] MEDS: metroNIDAZOLE 500 MG TABLET PO SCH ×3 (09:30→20:38)
[2021-09-29] MEDS: RIFAXIMIN 550 MG TABLET PO SCH ×2 (09:30→20:38)
[2021-09-29] MEDS: LEVOFLOXACIN 750 MG TABLET PO SCH (09:30)
[2021-09-29] MEDS: MULTIVITAMIN (CENTRUM) TABLET PO SCH (09:30)
[2021-09-29] MEDS: FOLIC ACID 1 MG TABLET PO SCH (09:30)
[2021-09-29] MEDS: PANTOPRAZOLE 40 MG VIAL IV SCH ×2 (09:31→20:38)
[2021-09-29] MEDS: SODIUM CHLORIDE 0.9% 1,000 ML IV SCH ×2 (09:35→14:26)
[2021-09-29] MEDS: HEPARIN 5,000 UNIT/1 ML VIAL SUBCUT SCH ×2 (09:37→20:54)
[2021-09-29 10:27] LABS: Basophils % 0.2 % (0.0-0.8); Eosinophils # 0.1 10*3/uL (0.0-0.87); Eosinophils % 1.8 % (0.00-10.9); Hematocrit 27.1 VOL% (35.7-47.0); Hemoglobin 9.4 GM/DL (12.0-16.0); Immature Granulocytes % 1.6 %; Immature Granulocytes Absolute 0.07 #; Lymphocytes # 0.5 10*3/uL (1.4-4.0); Lymphocytes % 11.1 % (21.3-54.2); Mean Corpuscular HGB Conc 34.7 GM/DL (32-36); Mean Corpuscular Volume 98.5 FL (87-102); Mean Platelet Volume 11.2 FL (9.6-12.0); Monocytes # 0.5 10*3/uL (0.11-0.8); Monocytes % 10.2 % (1.7-12.7); Neutrophils % 75.1 % (38.7-73.9); Platelet Count 106 T/CUMM (130-400); Red Blood Count 2.75 MC/CUMM (3.8-5.5); Red Cell Distribution Width 20.1 % (9.3-17.3); White Blood Count 4.5 T/CUMM (4-12)
[2021-09-29 10:45] LABS: Albumin 2.8 G/DL (3.4-5.0); Bilirubin,Total 3.3 MG/DL (0.20-1.00); Calcium 8.6 MG/DL (8.5-10.1); Osmolality,Calculated 267.1 MOS/KG (273-304); Potassium 3.7 MMOL/L (3.5-5.1); Total Protein 6.2 G/DL (6.4-8.2)
[2021-09-29] MEDS: ZALEPLON 5 MG CAPSULE PO PRN (20:37)
[2021-09-29] MEDS: KETOROLAC 15 MG/1 ML VIAL IV PRN (23:00)
[2021-09-30] MEDS: SODIUM CHLORIDE 0.9% 1,000 ML IV SCH (02:30)
[2021-09-30] MEDS: METOCLOPRAMIDE 10 MG/2 ML VIAL IV SCH ×3 (06:00→17:21)
[2021-09-30] MEDS: LACTULOSE 20 GM/30 ML UDCUP PO SCH ×4 (06:03→21:15)
[2021-09-30 06:52] LABS: Basophils % 0.2 % (0.0-0.8); Eosinophils # 0.1 10*3/uL (0.0-0.87); Eosinophils % 1.8 % (0.00-10.9); Hematocrit 29.5 VOL% (35.7-47.0); Immature Granulocytes % 2.2 %; Immature Granulocytes Absolute 0.11 #; Lymphocytes # 0.6 10*3/uL (1.4-4.0); Lymphocytes % 11.7 % (21.3-54.2); Mean Corpuscular HGB Conc 33.9 GM/DL (32-36); Mean Corpuscular Volume 99.3 FL (87-102); Mean Platelet Volume 11.4 FL (9.6-12.0); Monocytes # 0.6 10*3/uL (0.11-0.8); Monocytes % 12.7 % (1.7-12.7); Neutrophils % 71.4 % (38.7-73.9); Platelet Count 123 T/CUMM (130-400); Red Blood Count 2.97 MC/CUMM (3.8-5.5); Red Cell Distribution Width 20.9 % (9.3-17.3)
[2021-09-30 07:10] LABS: Albumin 2.8 G/DL (3.4-5.0); Bilirubin,Total 3.6 MG/DL (0.20-1.00); Calcium 8.7 MG/DL (8.5-10.1); Osmolality,Calculated 268.1 MOS/KG (273-304); Potassium 3.5 MMOL/L (3.5-5.1); Total Protein 6.2 G/DL (6.4-8.2)
[2021-09-30] MEDS: MULTIVITAMIN (CENTRUM) TABLET PO SCH (10:28)
[2021-09-30] MEDS: RIFAXIMIN 550 MG TABLET PO SCH ×2 (10:28→21:15)
[2021-09-30] MEDS: PANTOPRAZOLE 40 MG VIAL IV SCH ×2 (10:28→21:15)
[2021-09-30] MEDS: HEPARIN 5,000 UNIT/1 ML VIAL SUBCUT SCH ×2 (10:28→21:15)
[2021-09-30] MEDS: LEVOFLOXACIN 750 MG TABLET PO SCH (10:28)
[2021-09-30] MEDS: THIAMINE 100 MG TABLET PO SCH (10:29)
[2021-09-30] MEDS: POTASSIUM CHLORIDE 20 MEQ TABLET PO PRN (10:29)
[2021-09-30] MEDS: metroNIDAZOLE 500 MG TABLET PO SCH ×3 (10:29→21:15)
[2021-09-30] MEDS: FOLIC ACID 1 MG TABLET PO SCH (10:29)
[2021-09-30] MEDS: KETOROLAC 15 MG/1 ML VIAL IV PRN (10:30)
[2021-09-30] MEDS: HYDROmorphone 1 MG/1 ML SYRINGE IV PRN ×2 (12:39→16:17)
[2021-09-30] MEDS: ZALEPLON 5 MG CAPSULE PO PRN (21:16)
[2021-10-01] MEDS: METOCLOPRAMIDE 10 MG/2 ML VIAL IV SCH ×3 (01:00→13:15)
[2021-10-01] MEDS: LACTULOSE 20 GM/30 ML UDCUP PO SCH ×3 (03:52→15:39)
[2021-10-01 05:20] LABS: Basophils % 0.5 % (0.0-0.8); Eosinophils # 0.1 10*3/uL (0.0-0.87); Eosinophils % 1.2 % (0.00-10.9); Hematocrit 26.9 VOL% (35.7-47.0); Hemoglobin 9.3 GM/DL (12.0-16.0); Immature Granulocytes % 3.4 %; Lymphocytes # 0.7 10*3/uL (1.4-4.0); Lymphocytes % 12.4 % (21.3-54.2); Mean Corpuscular HGB Conc 34.6 GM/DL (32-36); Mean Corpuscular Volume 97.1 FL (87-102); Mean Platelet Volume 11.2 FL (9.6-12.0); Monocytes % 17.5 % (1.7-12.7); Platelet Count 144 T/CUMM (130-400); Red Blood Count 2.77 MC/CUMM (3.8-5.5); Red Cell Distribution Width 20.8 % (9.3-17.3); White Blood Count 5.9 T/CUMM (4-12)
[2021-10-01 05:38] LABS: Albumin 2.7 G/DL (3.4-5.0); Bilirubin,Total 3.7 MG/DL (0.20-1.00); Calcium 8.9 MG/DL (8.5-10.1); Potassium 3.7 MMOL/L (3.5-5.1)
[2021-10-01 05:43] LABS: Band Neutrophils 2 % (0-10); Lymphocytes 13 % (20-55); Macrocytosis 1+; Myelocytes 1 %; Total Cells Counted 100
[2021-10-01 05:44] LABS: Platelet Estimate Adequate; Target Cells Slight
[2021-10-01] MEDS: MULTIVITAMIN (CENTRUM) TABLET PO SCH (09:09)
[2021-10-01] MEDS: FOLIC ACID 1 MG TABLET PO SCH (09:10)
[2021-10-01] MEDS: HEPARIN 5,000 UNIT/1 ML VIAL SUBCUT SCH (09:10)
[2021-10-01] MEDS: metroNIDAZOLE 500 MG TABLET PO SCH ×2 (09:10→15:39)
[2021-10-01] MEDS: SODIUM CHLORIDE 0.9% 1,000 ML IV SCH (09:11)
[2021-10-01] MEDS: RIFAXIMIN 550 MG TABLET PO SCH (09:11)
[2021-10-01] MEDS: PANTOPRAZOLE 40 MG VIAL IV SCH (09:11)
[2021-10-01] MEDS: THIAMINE 100 MG TABLET PO SCH (09:11)
[2021-10-01] MEDS: HYDROmorphone 1 MG/1 ML SYRINGE IV PRN ×3 (09:12→15:42)
[2021-10-01] MEDS: LEVOFLOXACIN 750 MG TABLET PO SCH (09:12)
[2021-10-01 16:12] VITALS: BP 108/72
== END 2021-10-01 18:00 | disposition home or self-care (01) | DRG 433 ==
LOC: N.ED 11:39 → N.5E 21:28 → SUATTDRO 21:28 → N.5E 22:12
PROVIDERS: ADMIT Emergency Medicine; ATTEND Internal Medicine

== ENCOUNTER 2021-10-18 13:52 | Inpatient (IN) ==
[2021-10-18 22:19] LABS: Basophils % 0.1 % (0.0-0.8); Eosinophils % 0.1 % (0.00-10.9); Hematocrit 27.5 VOL% (35.7-47.0); Hemoglobin 9.7 GM/DL (12.0-16.0); Immature Granulocytes % 1.1 %; Immature Granulocytes Absolute 0.11 #; Lymphocytes # 0.6 10*3/uL (1.4-4.0); Lymphocytes % 5.4 % (21.3-54.2); Mean Corpuscular HGB Conc 35.3 GM/DL (32-36); Mean Corpuscular Volume 97.2 FL (87-102); Mean Platelet Volume 11.5 FL (9.6-12.0); Monocytes # 0.6 10*3/uL (0.11-0.8); Monocytes % 5.6 % (1.7-12.7); Neutrophils % 87.7 % (38.7-73.9); Platelet Count 146 T/CUMM (130-400); Red Blood Count 2.83 MC/CUMM (3.8-5.5); Red Cell Distribution Width 23.6 % (9.3-17.3); White Blood Count 10.2 T/CUMM (4-12)
[2021-10-18] MEDS ORDERED: SODIUM CHLORIDE 0.9% 500 ML IV STA (22:23)
[2021-10-18] MEDS ORDERED: hydrOXYzine HCL 25 MG/1 ML VIAL IM ONE (22:25)
[2021-10-18] MEDS ORDERED: METOCLOPRAMIDE 10 MG/2 ML VIAL IV STA (22:25)
[2021-10-18 22:47] LABS: Albumin 2.5 G/DL (3.4-5.0); Calcium 8.3 MG/DL (8.5-10.1); Osmolality,Calculated 271.8 MOS/KG (273-304); Potassium 2.9 MMOL/L (3.5-5.1); Total Protein 7.2 G/DL (6.4-8.2)
[2021-10-18 23:02] LABS: Bilirubin,Total 23.4 MG/DL (0.20-1.00)
[2021-10-19] MEDS ORDERED: HydrOXYzine PAMOATE 25 MG CAPSULE PO PRN (00:28)
[2021-10-19] MEDS ORDERED: HYDROmorphone 1 MG/1 ML SYRINGE IV STA (00:52)
[2021-10-19] MEDS ORDERED: POTASSIUM CHLORIDE 20 MEQ TABLET PO PRN (01:31)
[2021-10-19] MEDS ORDERED: oxyCODONE IR 5 MG TABLET PO PRN (01:38)
[2021-10-19] MEDS: ONDANSETRON 4 MG/2 ML VIAL IV PRN ×4 (02:25→16:59)
[2021-10-19] MEDS ORDERED: FERROUS SULFATE 325 MG TABLET PO SCH (09:00)
[2021-10-19] MEDS ORDERED: LACTULOSE 20 GM/30 ML UDCUP PO SCH (09:00)
[2021-10-19 09:01] LABS: INR 1.9; PT Patient Result 20.2 SECS (10.5-12.0)
[2021-10-19 09:12] LABS: Albumin 2.5 G/DL (3.4-5.0); Calcium 8.3 MG/DL (8.5-10.1); Osmolality,Calculated 271.8 MOS/KG (273-304); Potassium 2.9 MMOL/L (3.5-5.1); Total Protein 7.2 G/DL (6.4-8.2)
[2021-10-19] MEDS ORDERED: HYDROmorphone 1 MG/1 ML SYRINGE IV ONE (09:14)
[2021-10-19 09:15] LABS: Bilirubin,Total 24.2 MG/DL (0.20-1.00)
[2021-10-19] MEDS: PANTOPRAZOLE 40 MG TABLET PO SCH (09:59)
[2021-10-19] MEDS: FOLIC ACID 1 MG TABLET PO SCH (09:59)
[2021-10-19] MEDS: METOCLOPRAMIDE 5 MG TABLET PO SCH ×2 (09:59→13:49)
[2021-10-19] MEDS: MULTIVITAMIN (CENTRUM) TABLET PO SCH (09:59)
[2021-10-19] MEDS: THIAMINE 100 MG TABLET PO SCH (09:59)
[2021-10-19 12:08] LABS: Basophils % 0.2 % (0.0-0.8); Hematocrit 25.8 VOL% (35.7-47.0); Hemoglobin 8.9 GM/DL (12.0-16.0); Immature Granulocytes % 0.9 %; Immature Granulocytes Absolute 0.12 #; Lymphocytes # 0.5 10*3/uL (1.4-4.0); Lymphocytes % 4.1 % (21.3-54.2); Mean Corpuscular HGB Conc 34.5 GM/DL (32-36); Mean Corpuscular Volume 99.6 FL (87-102); Mean Platelet Volume 12.4 FL (9.6-12.0); Monocytes # 0.6 10*3/uL (0.11-0.8); Neutrophils % 89.8 % (38.7-73.9); Platelet Count 143 T/CUMM (130-400); Red Blood Count 2.59 MC/CUMM (3.8-5.5); Red Cell Distribution Width 23.7 % (9.3-17.3); White Blood Count 12.8 T/CUMM (4-12)
[2021-10-19 12:24] LABS: Barbiturates Screen,Urine Negative (Negative); Benzodiazepines Screen,Urine Negative (Negative); Cannabinoid Screen,Urine Negative (Negative); Opiate Screen,Urine Positive (Negative); Phencyclidine Screen,Urine Negative (Negative)
[2021-10-19 12:34] LABS: Band Neutrophils 7 % (0-10); Lymphocytes 5 % (20-55); Target Cells 1+; Total Cells Counted 100
[2021-10-19 12:35] LABS: Platelet Estimate Adequate
[2021-10-19] MEDS: METOCLOPRAMIDE 10 MG/2 ML VIAL IV PRN (13:57)
[2021-10-19] MEDS: HYDROmorphone 1 MG/1 ML SYRINGE IV PRN ×3 (13:57→21:50)
[2021-10-19] MEDS ORDERED: traMADol 50 MG TABLET PO PRN (16:26)
[2021-10-19] MEDS: LACTULOSE 20 GM/30 ML UDCUP PO SCH ×2 (16:56→21:30)
[2021-10-19] MEDS ORDERED: ACETYLCYSTEINE IV ONE ×2 (18:00→23:00)
[2021-10-19] MEDS ORDERED: DEXTROSE 5% IV ONE ×2 (18:00→23:00)
[2021-10-19] MEDS: LORazepam 2 MG/1 ML VIAL IV PRN (18:10)
[2021-10-19] MEDS ORDERED: ACETYLCYSTEINE INJ 3,000 MG in DEXTROSE 5% 500 ML IV ONE (19:00)
[2021-10-19] MEDS: hydrOXYzine HCL 25 MG TABLET PO SCH (21:30)
[2021-10-19] MEDS: CHOLESTYRAMINE 4 GM PACK PO SCH (21:30)
[2021-10-20] MEDS: LORazepam 2 MG/1 ML VIAL IV PRN (00:35)
[2021-10-20] MEDS: LACTULOSE 20 GM/30 ML UDCUP PO SCH ×4 (04:30→21:30)
[2021-10-20] MEDS: METOCLOPRAMIDE 10 MG/2 ML VIAL IV PRN (05:50)
[2021-10-20] MEDS: HYDROmorphone 1 MG/1 ML SYRINGE IV PRN ×5 (05:50→21:30)
[2021-10-20 06:13] LABS: INR 2.3; PT Patient Result 23.6 SECS (10.5-12.0)
[2021-10-20 06:36] LABS: Albumin 2.2 G/DL (3.4-5.0); Osmolality,Calculated 267.1 MOS/KG (273-304); Potassium 2.6 MMOL/L (3.5-5.1); Total Protein 6.5 G/DL (6.4-8.2)
[2021-10-20 06:38] LABS: Bilirubin,Total 23.8 MG/DL (0.20-1.00)
[2021-10-20 07:20] LABS: Basophils % 0.1 % (0.0-0.8); Eosinophils % 0.3 % (0.00-10.9); Hematocrit 25.7 VOL% (35.7-47.0); Hemoglobin 8.7 GM/DL (12.0-16.0); Immature Granulocytes Absolute 0.07 #; Lymphocytes # 0.9 10*3/uL (1.4-4.0); Lymphocytes % 11.9 % (21.3-54.2); Mean Corpuscular HGB Conc 33.9 GM/DL (32-36); Mean Corpuscular Volume 105.3 FL (87-102); Mean Platelet Volume 12.1 FL (9.6-12.0); Monocytes # 0.4 10*3/uL (0.11-0.8); Monocytes % 5.7 % (1.7-12.7); Platelet Count 107 T/CUMM (130-400); Red Blood Count 2.44 MC/CUMM (3.8-5.5); White Blood Count 7.2 T/CUMM (4-12)
[2021-10-20] MEDS ORDERED: MAGNESIUM SULF RIDER 2 GM/50 ML PREMIX IV ONE (08:36)
[2021-10-20] MEDS: FOLIC ACID 1 MG TABLET PO SCH (09:25)
[2021-10-20] MEDS: hydrOXYzine HCL 25 MG TABLET PO SCH ×3 (09:25→20:30)
[2021-10-20] MEDS: MULTIVITAMIN (CENTRUM) TABLET PO SCH (09:25)
[2021-10-20] MEDS: THIAMINE 100 MG TABLET PO SCH (09:25)
[2021-10-20] MEDS: PANTOPRAZOLE 40 MG TABLET PO SCH (09:25)
[2021-10-20 10:25] LABS: Anisocytosis Slight; Macrocytosis 1+; Platelet Estimate Adequate
[2021-10-20] MEDS: CHOLESTYRAMINE 4 GM PACK PO SCH ×2 (10:27→21:00)
[2021-10-20] MEDS: POTASSIUM CHLORIDE RIDER 10 MEQ/100 ML PREMIX IV PRN ×5 (15:20→23:15)
[2021-10-20] MEDS: PHYTONADIONE 5 MG/5 ML ORAL.SYR PO SCH (15:39)
[2021-10-20] MEDS: RIFAXIMIN 550 MG TABLET PO SCH (20:30)
[2021-10-20] MEDS: ONDANSETRON 4 MG/2 ML VIAL IV PRN (21:30)
[2021-10-21] MEDS: HYDROmorphone 1 MG/1 ML SYRINGE IV PRN ×4 (01:55→20:15)
[2021-10-21] MEDS: LACTULOSE 20 GM/30 ML UDCUP PO SCH ×4 (04:35→17:37)
[2021-10-21 04:52] LABS: Basophils % 0.1 % (0.0-0.8); Eosinophils % 0.2 % (0.00-10.9); Hematocrit 23.3 VOL% (35.7-47.0); Hemoglobin 8.1 GM/DL (12.0-16.0); Immature Granulocytes % 1.9 %; Immature Granulocytes Absolute 0.17 #; Lymphocytes # 0.8 10*3/uL (1.4-4.0); Lymphocytes % 8.5 % (21.3-54.2); Mean Corpuscular HGB Conc 34.8 GM/DL (32-36); Mean Corpuscular Volume 102.2 FL (87-102); Monocytes # 0.5 10*3/uL (0.11-0.8); Monocytes % 5.5 % (1.7-12.7); Neutrophils % 83.8 % (38.7-73.9); Platelet Count 121 T/CUMM (130-400); Red Blood Count 2.28 MC/CUMM (3.8-5.5); Red Cell Distribution Width 22.3 % (9.3-17.3)
[2021-10-21 05:14] LABS: INR 2.1
[2021-10-21 05:26] LABS: Albumin 2.1 G/DL (3.4-5.0); Osmolality,Calculated 261.7 MOS/KG (273-304); Potassium 2.8 MMOL/L (3.5-5.1); Total Protein 6.3 G/DL (6.4-8.2)
[2021-10-21 05:29] LABS: Bilirubin,Total 26.6 MG/DL (0.20-1.00)
[2021-10-21 05:43] LABS: Anisocytosis 1+; Macrocytosis 1+; Platelet Estimate Adequate
[2021-10-21 05:44] LABS: Target Cells Few
[2021-10-21] MEDS: ONDANSETRON 4 MG/2 ML VIAL IV PRN ×2 (07:20→20:15)
[2021-10-21] MEDS: hydrOXYzine HCL 25 MG TABLET PO SCH ×3 (08:51→20:15)
[2021-10-21] MEDS: THIAMINE 100 MG TABLET PO SCH (08:51)
[2021-10-21] MEDS: FOLIC ACID 1 MG TABLET PO SCH (08:51)
[2021-10-21] MEDS: MULTIVITAMIN (CENTRUM) TABLET PO SCH (08:51)
[2021-10-21] MEDS: PHYTONADIONE 5 MG/5 ML ORAL.SYR PO SCH (08:57)
[2021-10-21] MEDS: RIFAXIMIN 550 MG TABLET PO SCH ×2 (09:02→20:15)
[2021-10-21] MEDS: PANTOPRAZOLE 40 MG TABLET PO SCH (09:04)
[2021-10-21] MEDS: CHOLESTYRAMINE 4 GM PACK PO SCH ×2 (09:16→22:00)
[2021-10-21] MEDS: SODIUM CHLOR 0.9% KCL 40 MEQ 40 MEQ/1,000 ML BAG IV SCH (09:30)
[2021-10-22] MEDS: HYDROmorphone 1 MG/1 ML SYRINGE IV PRN ×7 (00:25→19:45)
[2021-10-22 04:49] LABS: Basophils % 0.3 % (0.0-0.8); Eosinophils % 0.4 % (0.00-10.9); Hemoglobin 8.5 GM/DL (12.0-16.0); Immature Granulocytes % 2.5 %; Immature Granulocytes Absolute 0.23 #; Lymphocytes # 0.7 10*3/uL (1.4-4.0); Lymphocytes % 7.9 % (21.3-54.2); Mean Corpuscular Volume 103.3 FL (87-102); Mean Platelet Volume 11.7 FL (9.6-12.0); Monocytes # 0.7 10*3/uL (0.11-0.8); Monocytes % 7.4 % (1.7-12.7); Neutrophils % 81.5 % (38.7-73.9); Platelet Count 152 T/CUMM (130-400); Red Blood Count 2.42 MC/CUMM (3.8-5.5); Red Cell Distribution Width 21.7 % (9.3-17.3); White Blood Count 9.4 T/CUMM (4-12)
[2021-10-22 05:23] LABS: Albumin 2.3 G/DL (3.4-5.0); Calcium 8.1 MG/DL (8.5-10.1); Osmolality,Calculated 272.8 MOS/KG (273-304); Total Protein 6.7 G/DL (6.4-8.2)
[2021-10-22 05:27] LABS: Bilirubin,Total 28.9 MG/DL (0.20-1.00)
[2021-10-22] MEDS: SODIUM CHLOR 0.9% KCL 40 MEQ 40 MEQ/1,000 ML BAG IV SCH ×2 (05:50→17:43)
[2021-10-22 06:35] LABS: INR 1.8
[2021-10-22] MEDS: MULTIVITAMIN (CENTRUM) TABLET PO SCH (09:25)
[2021-10-22] MEDS: THIAMINE 100 MG TABLET PO SCH (09:26)
[2021-10-22] MEDS: hydrOXYzine HCL 25 MG TABLET PO SCH ×3 (09:26→20:25)
[2021-10-22] MEDS: PANTOPRAZOLE 40 MG TABLET PO SCH (09:26)
[2021-10-22] MEDS: RIFAXIMIN 550 MG TABLET PO SCH ×2 (09:26→20:25)
[2021-10-22] MEDS: LACTULOSE 20 GM/30 ML UDCUP PO SCH ×3 (09:26→17:40)
[2021-10-22] MEDS: FOLIC ACID 1 MG TABLET PO SCH (09:26)
[2021-10-22] MEDS: PHYTONADIONE 5 MG/5 ML ORAL.SYR PO SCH (09:29)
[2021-10-22] MEDS: CHOLESTYRAMINE 4 GM PACK PO SCH ×2 (11:23→21:50)
[2021-10-22] MEDS: ONDANSETRON 4 MG/2 ML VIAL IV PRN (19:45)
[2021-10-23] MEDS: HYDROmorphone 1 MG/1 ML SYRINGE IV PRN ×5 (01:20→21:25)
[2021-10-23] MEDS: LACTULOSE 20 GM/30 ML UDCUP PO SCH ×3 (01:20→16:46)
[2021-10-23] MEDS: ONDANSETRON 4 MG/2 ML VIAL IV PRN ×3 (04:25→21:25)
[2021-10-23 05:55] LABS: INR 1.6; PT Patient Result 17.4 SECS (10.5-12.0)
[2021-10-23 08:58] LABS: Basophils % 0.2 % (0.0-0.8); Eosinophils # 0.1 10*3/uL (0.0-0.87); Eosinophils % 0.8 % (0.00-10.9); Hematocrit 24.6 VOL% (35.7-47.0); Immature Granulocytes % 4.5 %; Immature Granulocytes Absolute 0.41 #; Lymphocytes # 0.6 10*3/uL (1.4-4.0); Lymphocytes % 6.1 % (21.3-54.2); Mean Corpuscular HGB Conc 32.5 GM/DL (32-36); Mean Corpuscular Volume 108.4 FL (87-102); Mean Platelet Volume 11.2 FL (9.6-12.0); Monocytes # 0.7 10*3/uL (0.11-0.8); Monocytes % 7.8 % (1.7-12.7); Neutrophils % 80.6 % (38.7-73.9); Platelet Count 149 T/CUMM (130-400); Red Blood Count 2.27 MC/CUMM (3.8-5.5); Red Cell Distribution Width 22.4 % (9.3-17.3)
[2021-10-23] MEDS: RIFAXIMIN 550 MG TABLET PO SCH ×2 (09:06→20:45)
[2021-10-23] MEDS: THIAMINE 100 MG TABLET PO SCH (09:06)
[2021-10-23] MEDS: PANTOPRAZOLE 40 MG TABLET PO SCH (09:07)
[2021-10-23] MEDS: hydrOXYzine HCL 25 MG TABLET PO SCH ×3 (09:07→20:45)
[2021-10-23] MEDS: FOLIC ACID 1 MG TABLET PO SCH (09:07)
[2021-10-23] MEDS: SODIUM CHLOR 0.9% KCL 40 MEQ 40 MEQ/1,000 ML BAG IV SCH ×2 (09:07→23:55)
[2021-10-23] MEDS: MULTIVITAMIN (CENTRUM) TABLET PO SCH (09:07)
[2021-10-23] MEDS: PHYTONADIONE 5 MG/5 ML ORAL.SYR PO SCH (09:11)
[2021-10-23 09:36] LABS: Albumin 2.3 G/DL (3.4-5.0); Bilirubin,Direct 22.66 MG/DL (0.0-0.20); Calcium 8.2 MG/DL (8.5-10.1); Potassium 3.8 MMOL/L (3.5-5.1); Total Protein 6.7 G/DL (6.4-8.2)
[2021-10-23] MEDS: CHOLESTYRAMINE 4 GM PACK PO SCH ×2 (11:30→21:25)
[2021-10-24] MEDS: HYDROmorphone 1 MG/1 ML SYRINGE IV PRN ×8 (00:10→20:37)
[2021-10-24 04:47] LABS: Basophils % 0.2 % (0.0-0.8); Eosinophils % 0.5 % (0.00-10.9); Hematocrit 21.4 VOL% (35.7-47.0); Hemoglobin 7.1 GM/DL (12.0-16.0); Immature Granulocytes % 6.4 %; Immature Granulocytes Absolute 0.41 #; Lymphocytes # 0.7 10*3/uL (1.4-4.0); Lymphocytes % 11.3 % (21.3-54.2); Mean Corpuscular HGB Conc 33.2 GM/DL (32-36); Mean Corpuscular Volume 107.5 FL (87-102); Monocytes # 0.6 10*3/uL (0.11-0.8); Monocytes % 8.9 % (1.7-12.7); NRBC # 0.02 10*3/uL; Neutrophils % 72.7 % (38.7-73.9); Platelet Count 148 T/CUMM (130-400); Red Blood Count 1.99 MC/CUMM (3.8-5.5); Red Cell Distribution Width 22.7 % (9.3-17.3); White Blood Count 6.4 T/CUMM (4-12)
[2021-10-24 05:12] LABS: Band Neutrophils 4 % (0-10); Eosinophils 1 % (0-10); Lymphocytes 15 % (20-55); Platelet Estimate Adequate; Total Cells Counted 100
[2021-10-24 05:19] LABS: Albumin 1.8 G/DL (3.4-5.0); Bilirubin,Direct 18.62 MG/DL (0.0-0.20); Calcium 7.5 MG/DL (8.5-10.1); Osmolality,Calculated 274.5 MOS/KG (273-304); Potassium 4.6 MMOL/L (3.5-5.1); Total Protein 5.5 G/DL (6.4-8.2)
[2021-10-24] MEDS: LACTULOSE 20 GM/30 ML UDCUP PO SCH ×3 (08:05→16:04)
[2021-10-24] MEDS: PHYTONADIONE 5 MG/5 ML ORAL.SYR PO SCH (08:06)
[2021-10-24] MEDS: ONDANSETRON 4 MG/2 ML VIAL IV PRN ×3 (08:06→17:49)
[2021-10-24] MEDS: PANTOPRAZOLE 40 MG TABLET PO SCH (08:07)
[2021-10-24] MEDS: MULTIVITAMIN (CENTRUM) TABLET PO SCH (08:07)
[2021-10-24] MEDS: FOLIC ACID 1 MG TABLET PO SCH (08:07)
[2021-10-24] MEDS: THIAMINE 100 MG TABLET PO SCH (08:07)
[2021-10-24] MEDS: RIFAXIMIN 550 MG TABLET PO SCH ×2 (08:07→20:37)
[2021-10-24] MEDS: hydrOXYzine HCL 25 MG TABLET PO SCH ×3 (08:07→20:37)
[2021-10-24] MEDS: CHOLESTYRAMINE 4 GM PACK PO SCH ×2 (09:18→22:21)
[2021-10-24] MEDS: SODIUM CHLOR 0.9% KCL 40 MEQ 40 MEQ/1,000 ML BAG IV SCH (10:06)
[2021-10-24] MEDS ORDERED: SODIUM CHLORIDE 0.9% 1,000 ML IV PRN (13:18)
[2021-10-24] MEDS: FUROSEMIDE 20 MG TABLET PO SCH (13:42)
[2021-10-24] MEDS: SPIRONOLACTONE 50 MG TABLET PO SCH (13:42)
[2021-10-25] MEDS: LACTULOSE 20 GM/30 ML UDCUP PO SCH ×2 (00:09→10:11)
[2021-10-25] MEDS: ONDANSETRON 4 MG/2 ML VIAL IV PRN ×2 (00:21→04:41)
[2021-10-25] MEDS: HYDROmorphone 1 MG/1 ML SYRINGE IV PRN ×2 (00:21→04:41)
[2021-10-25 07:09] LABS: Hemoglobin 10.2 GM/DL (12.0-16.0)
[2021-10-25 07:49] VITALS: BP 106/67
[2021-10-25] MEDS: SPIRONOLACTONE 50 MG TABLET PO SCH (10:11)
[2021-10-25] MEDS: hydrOXYzine HCL 25 MG TABLET PO SCH (10:11)
[2021-10-25] MEDS: MULTIVITAMIN (CENTRUM) TABLET PO SCH (10:11)
[2021-10-25] MEDS: FOLIC ACID 1 MG TABLET PO SCH (10:11)
[2021-10-25] MEDS: PHYTONADIONE 5 MG/5 ML ORAL.SYR PO SCH (10:12)
[2021-10-25] MEDS: FUROSEMIDE 20 MG TABLET PO SCH (10:12)
[2021-10-25] MEDS: PANTOPRAZOLE 40 MG TABLET PO SCH (10:12)
[2021-10-25] MEDS: CHOLESTYRAMINE 4 GM PACK PO SCH (10:12)
[2021-10-25] MEDS: THIAMINE 100 MG TABLET PO SCH (10:12)
[2021-10-25] MEDS: RIFAXIMIN 550 MG TABLET PO SCH (10:12)
== END 2021-10-25 12:08 | disposition hospice, home (50) | DRG 433 ==
LOC: N.ED 13:52 → N.EDINP 10-19 00:22 → SUATTDRO 10-19 00:22 → N.5E 10-19 13:16
PROVIDERS: ADMIT Internal Medicine; ATTEND Emergency Medicine

== ENCOUNTER 2022-04-24 06:07 | Observation (INO) ==
[2022-04-24] MEDS ORDERED: SODIUM CHLORIDE 0.9% 500 ML IV STA (06:47)
[2022-04-24] MEDS ORDERED: ONDANSETRON 4 MG/2 ML VIAL IV STA (06:47)
[2022-04-24] MEDS ORDERED: PANTOPRAZOLE 40 MG VIAL IV STA (06:47)
[2022-04-24 06:53] LABS: Basophils % 0.2 % (0.0-0.8); Eosinophils # 0.1 10*3/uL (0.0-0.87); Eosinophils % 0.3 % (0.00-10.9); Hematocrit 33.7 VOL% (35.7-47.0); Hemoglobin 10.9 GM/DL (12.0-16.0); Immature Granulocytes % 0.7 %; Immature Granulocytes Absolute 0.12 #; Lymphocytes # 0.9 10*3/uL (1.4-4.0); Lymphocytes % 5.4 % (21.3-54.2); Mean Corpuscular HGB Conc 32.3 GM/DL (32-36); Mean Corpuscular Volume 86.6 FL (87-102); Mean Platelet Volume 10.8 FL (9.6-12.0); Monocytes # 0.7 10*3/uL (0.11-0.8); Monocytes % 4.4 % (1.7-12.7); Platelet Count 193 T/CUMM (130-400); Red Blood Count 3.89 MC/CUMM (3.8-5.5); Red Cell Distribution Width 16.9 % (9.3-17.3); White Blood Count 16.2 T/CUMM (4-12)
[2022-04-24 07:09] LABS: Albumin 3.2 G/DL (3.4-5.0); Calcium 8.3 MG/DL (8.5-10.1); Osmolality,Calculated 271.8 MOS/KG (273-304); Potassium 2.8 MMOL/L (3.5-5.1); Total Protein 6.5 G/DL (6.4-8.2)
[2022-04-24 08:23] LABS: INR 1.2; PT Patient Result 12.7 SECS (10.1-12.1); Partial Thromboplastin Time 28.8 SECS (23.7-32.9)
[2022-04-24] MEDS ORDERED: ALBUTEROL 2.5 MG/3 ML NEB RESP TX PRN (08:35)
[2022-04-24] MEDS ORDERED: MORPHINE 2 MG/1 ML SYRINGE ONE (08:54)
[2022-04-24] MEDS ORDERED: POTASSIUM CHLORIDE RIDER 10 MEQ/100 ML PREMIX IV PRN (10:51)
[2022-04-24] MEDS: MORPHINE 2 MG/1 ML SYRINGE IV PRN ×3 (11:12→20:23)
[2022-04-24] MEDS: SODIUM CHLORIDE 0.9% 1,000 ML IV SCH ×2 (11:13→21:21)
[2022-04-24] MEDS: POTASSIUM CHLORIDE RIDER 10 MEQ/100 ML PREMIX IV SCH ×4 (13:30→16:30)
[2022-04-24] MEDS: ONDANSETRON 4 MG/2 ML VIAL IV PRN (16:40)
[2022-04-24] MEDS: PANTOPRAZOLE 40 MG VIAL IV SCH (20:23)
[2022-04-24] MEDS ORDERED: LORazepam 2 MG/1 ML VIAL IV ONE (23:25)
[2022-04-25] MEDS: MORPHINE 2 MG/1 ML SYRINGE IV PRN ×4 (00:02→21:05)
[2022-04-25] MEDS ORDERED: HEPARIN DRIP 25,000 UNITS/500 ML PREMIX IV SCH (00:30)
[2022-04-25] MEDS: ONDANSETRON 4 MG/2 ML VIAL IV PRN (03:42)
[2022-04-25] MEDS: SODIUM CHLORIDE 0.9% 1,000 ML IV SCH ×2 (04:52→08:25)
[2022-04-25 05:54] LABS: Basophils % 0.1 % (0.0-0.8); Eosinophils # 0.1 10*3/uL (0.0-0.87); Eosinophils % 0.7 % (0.00-10.9); Hematocrit 33.4 VOL% (35.7-47.0); Hemoglobin 10.5 GM/DL (12.0-16.0); Immature Granulocytes % 0.8 %; Immature Granulocytes Absolute 0.11 #; Lymphocytes # 0.9 10*3/uL (1.4-4.0); Lymphocytes % 6.6 % (21.3-54.2); Mean Corpuscular HGB Conc 31.4 GM/DL (32-36); Mean Corpuscular Volume 90.5 FL (87-102); Mean Platelet Volume 11.8 FL (9.6-12.0); Monocytes # 0.6 10*3/uL (0.11-0.8); Monocytes % 3.9 % (1.7-12.7); Neutrophils % 87.9 % (38.7-73.9); Platelet Count 127 T/CUMM (130-400); Red Blood Count 3.69 MC/CUMM (3.8-5.5); Red Cell Distribution Width 17.2 % (9.3-17.3); White Blood Count 14.2 T/CUMM (4-12)
[2022-04-25 06:19] LABS: Albumin 2.9 G/DL (3.4-5.0); Bilirubin,Total 2.1 MG/DL (0.20-1.00); Calcium 7.8 MG/DL (8.5-10.1); Osmolality,Calculated 270.1 MOS/KG (273-304); Potassium 3.1 MMOL/L (3.5-5.1); Thyroid Stimulating Hormone 5.66 uIU/ml (0.358-3.74); Total Protein 6.5 G/DL (6.4-8.2)
[2022-04-25] MEDS ORDERED: KETAMINE 500 MG/10 ML VIAL ONE (07:53)
[2022-04-25] MEDS ORDERED: LIDOCAINE 2% 5 ML VIAL ONE (07:53)
[2022-04-25] MEDS ORDERED: propofoL 200 MG/20 ML VIAL IV ONE (07:53)
[2022-04-25] MEDS ORDERED: MAGNESIUM SULF INJ 3 GM in SODIUM CHLORIDE 0.9% 100 ML IV ONE (08:00)
[2022-04-25] MEDS ORDERED: FUROSEMIDE 100 MG/10 ML VIAL ONE (08:03)
[2022-04-25] MEDS: POTASSIUM CHLORIDE RIDER 10 MEQ/100 ML PREMIX IV PRN ×3 (08:34→10:35)
[2022-04-25] MEDS: PANTOPRAZOLE 40 MG VIAL IV SCH ×2 (08:37→21:04)
[2022-04-25] MEDS: DIAZEPAM 5 MG TABLET PO SCH ×3 (13:01→23:44)
[2022-04-25] MEDS: LORazepam 2 MG/1 ML VIAL IV PRN ×2 (16:57→23:45)
[2022-04-25] MEDS ORDERED: POTASSIUM CHLORIDE 20 MEQ TABLET PO ONE (17:00)
[2022-04-26] MEDS ORDERED: POTASSIUM CHLORIDE 20 MEQ TABLET PO PRN (04:00)
[2022-04-26 05:12] LABS: Basophils % 0.4 % (0.0-0.8); Eosinophils # 0.2 10*3/uL (0.0-0.87); Eosinophils % 3.3 % (0.00-10.9); Hematocrit 27.4 VOL% (35.7-47.0); Hemoglobin 8.7 GM/DL (12.0-16.0); Immature Granulocytes % 0.4 %; Immature Granulocytes Absolute 0.02 #; Lymphocytes # 1.1 10*3/uL (1.4-4.0); Lymphocytes % 20.8 % (21.3-54.2); Mean Corpuscular HGB Conc 31.8 GM/DL (32-36); Mean Corpuscular Volume 90.1 FL (87-102); Mean Platelet Volume 12.2 FL (9.6-12.0); Monocytes # 0.3 10*3/uL (0.11-0.8); Monocytes % 4.9 % (1.7-12.7); Neutrophils % 70.2 % (38.7-73.9); Platelet Count 84 T/CUMM (130-400); Red Blood Count 3.04 MC/CUMM (3.8-5.5); Red Cell Distribution Width 17.3 % (9.3-17.3); White Blood Count 5.5 T/CUMM (4-12)
[2022-04-26] MEDS: DIAZEPAM 5 MG TABLET PO SCH ×3 (05:27→18:43)
[2022-04-26 05:28] LABS: Albumin 2.3 G/DL (3.4-5.0); Calcium 7.9 MG/DL (8.5-10.1); Osmolality,Calculated 273.7 MOS/KG (273-304); Phosphorous 1.6 MG/DL (2.5-4.9); Potassium 3.7 MMOL/L (3.5-5.1); Total Protein 5.2 G/DL (6.4-8.2)
[2022-04-26] MEDS: MORPHINE 2 MG/1 ML SYRINGE IV PRN ×3 (05:28→21:04)
[2022-04-26 05:41] LABS: Elliptocytes Few; Platelet Estimate Decreased
[2022-04-26] MEDS: PANTOPRAZOLE 40 MG VIAL IV SCH ×2 (10:01→21:04)
[2022-04-26] MEDS: ONDANSETRON 4 MG/2 ML VIAL IV PRN ×2 (10:04→18:44)
[2022-04-26] MEDS: LORazepam 2 MG/1 ML VIAL IV PRN (21:05)
[2022-04-27] MEDS: DIAZEPAM 5 MG TABLET PO SCH ×4 (00:07→18:34)
[2022-04-27] MEDS: MORPHINE 2 MG/1 ML SYRINGE IV PRN ×5 (01:11→21:47)
[2022-04-27 05:27] LABS: Basophils % 0.2 % (0.0-0.8); Eosinophils # 0.2 10*3/uL (0.0-0.87); Eosinophils % 3.4 % (0.00-10.9); Hematocrit 26.7 VOL% (35.7-47.0); Hemoglobin 8.3 GM/DL (12.0-16.0); Immature Granulocytes % 0.4 %; Immature Granulocytes Absolute 0.02 #; Lymphocytes # 1.1 10*3/uL (1.4-4.0); Lymphocytes % 22.4 % (21.3-54.2); Mean Corpuscular HGB Conc 31.1 GM/DL (32-36); Mean Corpuscular Volume 90.5 FL (87-102); Monocytes # 0.5 10*3/uL (0.11-0.8); Monocytes % 9.5 % (1.7-12.7); Neutrophils % 64.1 % (38.7-73.9); Red Blood Count 2.95 MC/CUMM (3.8-5.5); Red Cell Distribution Width 17.9 % (9.3-17.3)
[2022-04-27 05:31] LABS: Platelet Count 81 T/CUMM (130-400)
[2022-04-27 06:45] LABS: Platelet Estimate Decreased
[2022-04-27] MEDS: PANTOPRAZOLE 40 MG VIAL IV SCH (08:15)
[2022-04-27] MEDS: LACTULOSE 20 GM/30 ML UDCUP PO SCH ×2 (10:34→21:47)
[2022-04-27] MEDS: ONDANSETRON 4 MG/2 ML VIAL IV PRN (15:44)
[2022-04-27] MEDS: PANTOPRAZOLE 40 MG TABLET PO SCH (21:47)
[2022-04-28] MEDS: DIAZEPAM 5 MG TABLET PO SCH ×4 (01:06→17:46)
[2022-04-28] MEDS: MORPHINE 2 MG/1 ML SYRINGE IV PRN ×2 (02:51→08:59)
[2022-04-28 05:30] LABS: Basophils % 0.2 % (0.0-0.8); Eosinophils # 0.2 10*3/uL (0.0-0.87); Eosinophils % 3.5 % (0.00-10.9); Hematocrit 27.6 VOL% (35.7-47.0); Hemoglobin 8.9 GM/DL (12.0-16.0); Immature Granulocytes % 0.4 %; Immature Granulocytes Absolute 0.02 #; Lymphocytes % 22.1 % (21.3-54.2); Mean Corpuscular HGB Conc 32.2 GM/DL (32-36); Mean Corpuscular Volume 89.6 FL (87-102); Mean Platelet Volume 12.3 FL (9.6-12.0); Monocytes # 0.5 10*3/uL (0.11-0.8); Monocytes % 11.3 % (1.7-12.7); Neutrophils % 62.5 % (38.7-73.9); Red Blood Count 3.08 MC/CUMM (3.8-5.5); Red Cell Distribution Width 18.5 % (9.3-17.3); White Blood Count 4.5 T/CUMM (4-12)
[2022-04-28 05:33] LABS: Platelet Count 83 T/CUMM (130-400)
[2022-04-28 06:31] LABS: Platelet Estimate Decreased
[2022-04-28] MEDS: PANTOPRAZOLE 40 MG TABLET PO SCH ×2 (08:58→20:13)
[2022-04-28] MEDS: LACTULOSE 20 GM/30 ML UDCUP PO SCH ×2 (08:58→20:13)
[2022-04-29] MEDS: DIAZEPAM 5 MG TABLET PO SCH ×4 (00:19→17:06)
[2022-04-29 05:58] LABS: Basophils % 0.2 % (0.0-0.8); Eosinophils # 0.2 10*3/uL (0.0-0.87); Eosinophils % 3.8 % (0.00-10.9); Hematocrit 27.9 VOL% (35.7-47.0); Hemoglobin 8.9 GM/DL (12.0-16.0); Immature Granulocytes % 0.4 %; Immature Granulocytes Absolute 0.02 #; Lymphocytes # 0.9 10*3/uL (1.4-4.0); Lymphocytes % 20.8 % (21.3-54.2); Mean Corpuscular HGB Conc 31.9 GM/DL (32-36); Mean Corpuscular Volume 90.6 FL (87-102); Mean Platelet Volume 12.4 FL (9.6-12.0); Monocytes # 0.7 10*3/uL (0.11-0.8); Monocytes % 14.6 % (1.7-12.7); Neutrophils % 60.2 % (38.7-73.9); Red Blood Count 3.08 MC/CUMM (3.8-5.5); Red Cell Distribution Width 18.3 % (9.3-17.3); White Blood Count 4.5 T/CUMM (4-12)
[2022-04-29 06:04] LABS: Platelet Count 83 T/CUMM (130-400)
[2022-04-29 06:20] LABS: Platelet Estimate Decreased
[2022-04-29 06:21] LABS: Hypochromia Slight
[2022-04-29] MEDS: ONDANSETRON 4 MG/2 ML VIAL IV PRN (08:52)
[2022-04-29] MEDS: LACTULOSE 20 GM/30 ML UDCUP PO SCH ×2 (09:52→11:29)
[2022-04-29] MEDS: PANTOPRAZOLE 40 MG TABLET PO SCH ×2 (09:52→11:29)
[2022-04-29] MEDS: SPIRONOLACTONE 50 MG TABLET PO SCH ×2 (09:52→11:28)
[2022-04-29] MEDS: FUROSEMIDE 20 MG TABLET PO SCH ×3 (09:52→17:05)
[2022-04-29] MEDS ORDERED: SIMETHICONE CHEW 125 MG TABLET PO PRN (11:16)
[2022-04-29 16:39] VITALS: BP 119/81
== END 2022-04-29 18:23 | disposition home health service (06) ==
LOC: N.ED 06:07 → INTOOBSV 08:35 → N.EDINP 08:35 → SUATTDRO 08:35 → N.CC 09:13 → N.5E 04-25 17:02
PROVIDERS: ADMIT Internal Medicine; ATTEND Internal Medicine

== ENCOUNTER 2022-06-03 15:05 | Inpatient (IN) ==
[2022-06-03] MEDS ORDERED: PANTOPRAZOLE 40 MG VIAL IV STA (18:12)
[2022-06-03] MEDS ORDERED: OCTREOTIDE 100 MCG/ML SYRINGE IV STA (18:12)
[2022-06-03] MEDS ORDERED: SODIUM CHLORIDE 0.9% 1,000 ML IV STA (18:15)
[2022-06-03 18:31] LABS: Basophils % 0.2 % (0.0-0.8); Hematocrit 21.9 VOL% (35.7-47.0); Hemoglobin 6.9 GM/DL (12.0-16.0); Immature Granulocytes % 1.2 %; Immature Granulocytes Absolute 0.19 #; Lymphocytes # 1.6 10*3/uL (1.4-4.0); Lymphocytes % 9.7 % (21.3-54.2); Mean Corpuscular HGB Conc 31.5 GM/DL (32-36); Mean Corpuscular Volume 96.1 FL (87-102); Mean Platelet Volume 11.8 FL (9.6-12.0); Monocytes # 0.7 10*3/uL (0.11-0.8); Monocytes % 4.4 % (1.7-12.7); Neutrophils % 84.5 % (38.7-73.9); Platelet Count 164 T/CUMM (130-400); Red Blood Count 2.28 MC/CUMM (3.8-5.5); Red Cell Distribution Width 17.1 % (9.3-17.3); White Blood Count 16.2 T/CUMM (4-12)
[2022-06-03 18:45] LABS: INR 1.3; PT Patient Result 13.8 SECS (10.1-12.1); Partial Thromboplastin Time 24.9 SECS (23.7-32.9)
[2022-06-03 18:46] LABS: Albumin 2.3 G/DL (3.4-5.0); Bilirubin,Total 1.3 MG/DL (0.20-1.00); Calcium 8.1 MG/DL (8.5-10.1); Potassium 3.3 MMOL/L (3.5-5.1); Total Protein 5.5 G/DL (6.4-8.2)
[2022-06-03] MEDS ORDERED: SODIUM CHLORIDE 0.9% 1,000 ML IV PRN (19:16)
[2022-06-03] MEDS ORDERED: diphenhydrAMINE 50 MG/1 ML VIAL IV PRN (19:16)
[2022-06-03] MEDS ORDERED: ALBUTEROL 2.5 MG/3 ML NEB RESP TX PRN (20:51)
[2022-06-03] MEDS ORDERED: ONDANSETRON 4 MG/2 ML VIAL ONE (20:59)
[2022-06-03] MEDS ORDERED: ONDANSETRON 4 MG/2 ML VIAL IV STA (21:00)
[2022-06-03] MEDS ORDERED: SODIUM CHLORIDE 0.9% 1,000 ML IV ONE (22:30)
[2022-06-03] MEDS: SODIUM CHLORIDE 0.9% 1,000 ML IV SCH (23:16)
[2022-06-03] MEDS ORDERED: OCTREOTIDE 500 MCG in SODIUM CHLORIDE 0.9% 100 ML IV SCH (23:30)
[2022-06-03] MEDS ORDERED: PANTOPRAZOLE INJ 200 MG in SODIUM CHLORIDE 0.9% 250 ML IV SCH (23:30)
[2022-06-04] MEDS ORDERED: PIPERACILLIN/TAZOBACTAM 3,375 MG in SODIUM CHLORIDE 0.9% 100 ML IV SCH
[2022-06-04] MEDS: ONDANSETRON 4 MG/2 ML VIAL IV PRN ×4 (01:21→17:30)
[2022-06-04 03:27] LABS: Basophils % 0.1 % (0.0-0.8); Hematocrit 27.3 VOL% (35.7-47.0); Immature Granulocytes % 1.1 %; Immature Granulocytes Absolute 0.16 #; Lymphocytes # 1.1 10*3/uL (1.4-4.0); Lymphocytes % 7.6 % (21.3-54.2); Mean Corpuscular HGB Conc 33.3 GM/DL (32-36); Mean Corpuscular Volume 89.5 FL (87-102); Mean Platelet Volume 12.2 FL (9.6-12.0); Monocytes # 0.8 10*3/uL (0.11-0.8); Neutrophils % 86.2 % (38.7-73.9); Red Cell Distribution Width 16.3 % (9.3-17.3); White Blood Count 15.1 T/CUMM (4-12)
[2022-06-04 03:29] LABS: Red Blood Count 3.05 MC/CUMM (3.8-5.5)
[2022-06-04 03:30] LABS: Hemoglobin 9.1 GM/DL (12.0-16.0); Platelet Count 100 T/CUMM (130-400)
[2022-06-04 03:45] LABS: Albumin 2.2 G/DL (3.4-5.0); Osmolality,Calculated 283.4 MOS/KG (273-304); Potassium 3.5 MMOL/L (3.5-5.1); Total Protein 5.2 G/DL (6.4-8.2)
[2022-06-04 04:20] LABS: Hepatitis B Core IgM Quant 0.07 Index; Hepatitis B Surface Ag Quant < 0.10 Index; Hepatitis B Surface Ag Result Non-Reactive (NonReactive); Hepatitis C Virus Ab Quant < 0.02 Index; Hepatitis C Virus Ab Result Non-Reactive (NonReactive)
[2022-06-04 05:01] LABS: Bacteria,Urine Occasional /HPF (Few); Bilirubin,Urine Negative (Negative); Blood, Urine Negative (Negative); Glucose,Urine (UA) Negative (Negative); Ketones,Urine Negative (Negative); Nitrite,Urine Negative (Negative); Protein,Urine Trace mg/dL (Negative); RBC,Urine 1 /HPF (0-4); Squamous Epithelial Cell,Urine Few /HPF (0-10); Urine Appearance Clear (Clear); Urine Color Yellow (Yellow); Urine Specific Gravity 1.015 (1.001-1.035); Urine pH 6.5 (4.5-8.0)
[2022-06-04] MEDS: SODIUM CHLORIDE 0.9% 1,000 ML IV SCH ×3 (09:06→17:00)
[2022-06-04] MEDS: cefTRIAXone 1,000 MG in SODIUM CHLORIDE 0.9% 100 ML IV SCH (09:32)
[2022-06-04] MEDS ORDERED: propofoL 200 MG/20 ML VIAL IV ONE (14:18)
[2022-06-04] MEDS ORDERED: ETOMIDATE 20 MG/10 ML VIAL IV ONE (14:18)
[2022-06-04] MEDS ORDERED: LIDOCAINE 2% 5 ML VIAL ONE (14:18)
[2022-06-04] MEDS ORDERED: DIAZEPAM 5 MG TABLET PO PRN (17:28)
[2022-06-04] MEDS ORDERED: PANTOPRAZOLE 40 MG VIAL IV SCH (21:00)
[2022-06-05] MEDS: SODIUM CHLORIDE 0.9% 1,000 ML IV SCH ×2 (02:54→15:07)
[2022-06-05 06:11] LABS: Basophils % 0.3 % (0.0-0.8); Eosinophils # 0.1 10*3/uL (0.0-0.87); Eosinophils % 1.3 % (0.00-10.9); Hemoglobin 8.3 GM/DL (12.0-16.0); Immature Granulocytes % 0.7 %; Immature Granulocytes Absolute 0.05 #; Lymphocytes # 1.3 10*3/uL (1.4-4.0); Lymphocytes % 19.2 % (21.3-54.2); Mean Corpuscular HGB Conc 31.9 GM/DL (32-36); Mean Corpuscular Volume 91.2 FL (87-102); Mean Platelet Volume 11.3 FL (9.6-12.0); Monocytes # 0.3 10*3/uL (0.11-0.8); Monocytes % 3.9 % (1.7-12.7); Neutrophils % 74.6 % (38.7-73.9); Platelet Count 63 T/CUMM (130-400); Red Blood Count 2.85 MC/CUMM (3.8-5.5); Red Cell Distribution Width 17.5 % (9.3-17.3); White Blood Count 6.9 T/CUMM (4-12)
[2022-06-05 06:33] LABS: Albumin 1.9 G/DL (3.4-5.0); Bilirubin,Total 1.4 MG/DL (0.20-1.00); Calcium 6.5 MG/DL (8.5-10.1); Osmolality,Calculated 280.4 MOS/KG (273-304); Total Protein 4.9 G/DL (6.4-8.2)
[2022-06-05 06:42] LABS: Hypochromia Slight; Microcytosis 1+
[2022-06-05 06:43] LABS: Platelet Estimate Decreased
[2022-06-05] MEDS ORDERED: ACETAMINOPHEN 500 MG TABLET PO PRN (06:52)
[2022-06-05] MEDS ORDERED: SERTRALINE 50 MG TABLET PO SCH (09:00)
[2022-06-05] MEDS: PANTOPRAZOLE 40 MG TABLET PO SCH ×2 (09:27→19:39)
[2022-06-05] MEDS: cefTRIAXone 1,000 MG in SODIUM CHLORIDE 0.9% 100 ML IV SCH (09:28)
[2022-06-05] MEDS: POTASSIUM BICARB EFFERVESCENT 20 MEQ TAB.EFF PO SCH ×3 (09:28→19:38)
[2022-06-05] MEDS: LORazepam 2 MG/1 ML VIAL IV PRN ×2 (09:37→19:42)
[2022-06-06] MEDS: SODIUM CHLORIDE 0.9% 1,000 ML IV SCH ×2 (00:15→08:30)
[2022-06-06] MEDS: LORazepam 2 MG/1 ML VIAL IV PRN ×3 (02:14→18:30)
[2022-06-06 05:00] LABS: Basophils % 0.3 % (0.0-0.8); Eosinophils # 0.2 10*3/uL (0.0-0.87); Eosinophils % 1.7 % (0.00-10.9); Hematocrit 28.5 VOL% (35.7-47.0); Hemoglobin 9.4 GM/DL (12.0-16.0); Immature Granulocytes Absolute 0.09 #; Lymphocytes # 1.3 10*3/uL (1.4-4.0); Mean Corpuscular Volume 91.1 FL (87-102); Mean Platelet Volume 11.6 FL (9.6-12.0); Monocytes # 0.4 10*3/uL (0.11-0.8); Monocytes % 4.2 % (1.7-12.7); Neutrophils % 77.8 % (38.7-73.9); Platelet Count 69 T/CUMM (130-400); Red Blood Count 3.13 MC/CUMM (3.8-5.5); Red Cell Distribution Width 17.5 % (9.3-17.3)
[2022-06-06 05:05] LABS: White Blood Count 8.6 T/CUMM (4-12)
[2022-06-06 05:24] LABS: Hypochromia Slight; Microcytosis Slight; Platelet Estimate Decreased
[2022-06-06 05:25] LABS: Bilirubin,Total 1.9 MG/DL (0.20-1.00); Calcium 6.6 MG/DL (8.5-10.1); Osmolality,Calculated 272.8 MOS/KG (273-304); Total Protein 5.1 G/DL (6.4-8.2)
[2022-06-06] MEDS: PANTOPRAZOLE 40 MG TABLET PO SCH ×2 (06:00→20:10)
[2022-06-06] MEDS: cefTRIAXone 1,000 MG in SODIUM CHLORIDE 0.9% 100 ML IV SCH (08:30)
[2022-06-06] MEDS: POTASSIUM CHLORIDE RIDER 10 MEQ/100 ML PREMIX IV PRN ×5 (12:06→18:10)
[2022-06-06 20:37] VITALS: BP 104/78
== END 2022-06-06 21:00 | disposition home health service (06) | DRG 243 ==
LOC: N.ED 15:05 → N.EDINP 20:51 → SUATTDRO 20:51 → N.ICU 22:12 → N.2E 06-05 16:51
PROVIDERS: ADMIT Internal Medicine; ATTEND Emergency Medicine

== ENCOUNTER 2022-06-14 21:22 | Inpatient (IN) ==
[2022-06-14] MEDS ORDERED: SODIUM CHLORIDE 0.9% 1,000 ML IV STA ×2 (22:12→22:54)
[2022-06-14] MEDS ORDERED: ONDANSETRON 4 MG/2 ML VIAL IV STA (22:12)
[2022-06-14] MEDS ORDERED: PANTOPRAZOLE INJ 80 MG in SODIUM CHLORIDE 0.9% 100 ML IV STA (22:12)
[2022-06-14 22:22] LABS: Basophils # 0.1 10*3/uL (0.0-0.2); Basophils % 0.7 % (0.0-0.8); Eosinophils % 0.3 % (0.00-10.9); Hematocrit 25.1 VOL% (35.7-47.0); Immature Granulocytes % 0.9 %; Immature Granulocytes Absolute 0.14 #; Lymphocytes # 2.4 10*3/uL (1.4-4.0); Lymphocytes % 15.8 % (21.3-54.2); Mean Corpuscular HGB Conc 31.9 GM/DL (32-36); Mean Corpuscular Volume 92.6 FL (87-102); Mean Platelet Volume 10.7 FL (9.6-12.0); Monocytes # 1.2 10*3/uL (0.11-0.8); Monocytes % 8.1 % (1.7-12.7); Neutrophils % 74.2 % (38.7-73.9); Platelet Count 410 T/CUMM (130-400); Red Blood Count 2.71 MC/CUMM (3.8-5.5); Red Cell Distribution Width 19.5 % (9.3-17.3); White Blood Count 15.2 T/CUMM (4-12)
[2022-06-14 22:30] LABS: INR 1.2; PT Patient Result 13.5 SECS (10.1-12.1); Partial Thromboplastin Time 26.9 SECS (23.7-32.9)
[2022-06-14 22:33] LABS: Albumin 2.1 G/DL (3.4-5.0); Bilirubin,Total 3.4 MG/DL (0.20-1.00); Osmolality,Calculated 272.8 MOS/KG (273-304); Total Protein 5.4 G/DL (6.4-8.2)
[2022-06-14] MEDS ORDERED: NOREPINEPHRINE 16 MG in SODIUM CHLORIDE 0.9% 234 ML IV PRN (22:59)
[2022-06-14] MEDS ORDERED: MORPHINE 2 MG/1 ML SYRINGE ONE (23:13)
[2022-06-14] MEDS: MORPHINE 2 MG/1 ML SYRINGE IV PRN (23:42)
[2022-06-15] MEDS: PANTOPRAZOLE INJ 200 MG in SODIUM CHLORIDE 0.9% 250 ML IV SCH (00:25)
[2022-06-15] MEDS: LACTATED RINGERS 1,000 ML IV SCH ×3 (00:26→18:01)
[2022-06-15] MEDS ORDERED: MAGNESIUM SULF RIDER 4 GM/100 ML PREMIX IV PRN (00:56)
[2022-06-15] MEDS ORDERED: SODIUM CHLORIDE 0.9% 1,000 ML IV PRN (01:13)
[2022-06-15] MEDS ORDERED: LACTATED RINGERS 1,000 ML IV ONE (01:25)
[2022-06-15] MEDS: MAGNESIUM SULF RIDER 2 GM/50 ML PREMIX IV PRN (01:39)
[2022-06-15 01:53] LABS: Hematocrit 15.8 VOL% (35.7-47.0)
[2022-06-15 01:56] LABS: Hemoglobin 4.7 GM/DL (12.0-16.0)
[2022-06-15] MEDS ORDERED: THIAMINE INJ 100 MG, FOLIC ACID INJ 1 MG, MULTIVITAMIN INJ 10 ML in SODIUM CHLORIDE 0.9... IV ONE (02:05)
[2022-06-15 02:41] LABS: Bacteria,Urine Occasional /HPF (Few); Hyaline Casts,Urine 14 /LPF (0-3); Mucus,Urine Occasional /LPF (Occasional); RBC,Urine 2 /HPF (0-4); Squamous Epithelial Cell,Urine Many /HPF (0-10)
[2022-06-15 02:42] LABS: Protein,Urine 100 mg/dL (Negative); Urine Appearance Cloudy (Clear); Urine Color Amber (Yellow); Urine Specific Gravity 1.015 (1.001-1.035); Urine pH 5.5 (4.5-8.0)
[2022-06-15 02:43] LABS: Bilirubin,Urine Large mg/dL (Negative); Blood, Urine Trace mg/dL (Negative); Glucose,Urine (UA) Negative (Negative); Ketones,Urine Trace mg/dL (Negative); Nitrite,Urine Negative (Negative)
[2022-06-15] MEDS: POTASSIUM CHLORIDE RIDER 10 MEQ/100 ML PREMIX IV PRN ×4 (03:18→06:05)
[2022-06-15] MEDS: MORPHINE 2 MG/1 ML SYRINGE IV PRN ×4 (04:26→20:15)
[2022-06-15] MEDS: ONDANSETRON 4 MG/2 ML VIAL IV PRN (04:28)
[2022-06-15] MEDS: LORazepam 2 MG/1 ML VIAL IV PRN ×4 (05:15→21:35)
[2022-06-15 05:30] LABS: Basophils # 0.1 10*3/uL (0.0-0.2); Basophils % 0.3 % (0.0-0.8); Hematocrit 34.2 VOL% (35.7-47.0); Hematocrit 34.3 VOL% (35.7-47.0); Hemoglobin 11.1 GM/DL (12.0-16.0); Immature Granulocytes % 1.3 %; Immature Granulocytes Absolute 0.24 #; Lymphocytes # 1.4 10*3/uL (1.4-4.0); Lymphocytes % 7.8 % (21.3-54.2); Mean Corpuscular HGB Conc 32.4 GM/DL (32-36); Mean Platelet Volume 10.9 FL (9.6-12.0); Monocytes # 1.5 10*3/uL (0.11-0.8); Monocytes % 8.2 % (1.7-12.7); Neutrophils % 82.4 % (38.7-73.9); Platelet Count 205 T/CUMM (130-400); Red Blood Count 3.69 MC/CUMM (3.8-5.5); Red Cell Distribution Width 16.8 % (9.3-17.3); White Blood Count 17.8 T/CUMM (4-12)
[2022-06-15 06:02] LABS: Albumin 1.6 G/DL (3.4-5.0); Calcium 8.4 MG/DL (8.5-10.1); Osmolality,Calculated 271.1 MOS/KG (273-304); Potassium 3.9 MMOL/L (3.5-5.1); Total Protein 4.3 G/DL (6.4-8.2)
[2022-06-15 10:24] LABS: Basophils # 0.1 10*3/uL (0.0-0.2); Basophils % 0.5 % (0.0-0.8); Eosinophils % 0.1 % (0.00-10.9); Hematocrit 38.1 VOL% (35.7-47.0); Immature Granulocytes % 0.7 %; Immature Granulocytes Absolute 0.14 #; Lymphocytes % 15.3 % (21.3-54.2); Mean Corpuscular HGB Conc 31.5 GM/DL (32-36); Mean Corpuscular Volume 95.7 FL (87-102); Mean Platelet Volume 11.8 FL (9.6-12.0); Monocytes # 1.5 10*3/uL (0.11-0.8); Monocytes % 7.5 % (1.7-12.7); Neutrophils % 75.9 % (38.7-73.9); Red Blood Count 3.98 MC/CUMM (3.8-5.5); White Blood Count 19.6 T/CUMM (4-12)
[2022-06-15 10:25] LABS: Platelet Count 148 T/CUMM (130-400)
[2022-06-15 17:57] LABS: Hematocrit 29.6 VOL% (35.7-47.0)
[2022-06-16] MEDS: LACTATED RINGERS 1,000 ML IV SCH ×3 (01:29→17:50)
[2022-06-16] MEDS: PANTOPRAZOLE INJ 200 MG in SODIUM CHLORIDE 0.9% 250 ML IV SCH (01:29)
[2022-06-16] MEDS: MORPHINE 2 MG/1 ML SYRINGE IV PRN ×5 (01:36→22:08)
[2022-06-16 04:08] LABS: Basophils # 0.1 10*3/uL (0.0-0.2); Basophils % 0.5 % (0.0-0.8); Eosinophils # 0.1 10*3/uL (0.0-0.87); Eosinophils % 0.8 % (0.00-10.9); Hematocrit 26.2 VOL% (35.7-47.0); Immature Granulocytes % 0.6 %; Immature Granulocytes Absolute 0.06 #; Lymphocytes # 2.4 10*3/uL (1.4-4.0); Lymphocytes % 22.6 % (21.3-54.2); Mean Corpuscular HGB Conc 34.4 GM/DL (32-36); Mean Corpuscular Volume 89.1 FL (87-102); Mean Platelet Volume 10.9 FL (9.6-12.0); Monocytes # 0.5 10*3/uL (0.11-0.8); Monocytes % 4.8 % (1.7-12.7); Neutrophils % 70.7 % (38.7-73.9); Platelet Count 182 T/CUMM (130-400); Red Blood Count 2.94 MC/CUMM (3.8-5.5); White Blood Count 10.7 T/CUMM (4-12)
[2022-06-16 04:23] LABS: Albumin 1.7 G/DL (3.4-5.0); Bilirubin,Total 4.9 MG/DL (0.20-1.00); Calcium 7.8 MG/DL (8.5-10.1); Osmolality,Calculated 276.8 MOS/KG (273-304); Total Protein 4.2 G/DL (6.4-8.2)
[2022-06-16] MEDS: MAGNESIUM SULF RIDER 2 GM/50 ML PREMIX IV PRN (05:50)
[2022-06-16] MEDS: LORazepam 2 MG/1 ML VIAL IV PRN ×4 (09:22→23:18)
[2022-06-16] MEDS: PANTOPRAZOLE 40 MG VIAL IV SCH ×2 (09:22→20:23)
[2022-06-16 12:40] LABS: Hematocrit 23.9 VOL% (35.7-47.0)
[2022-06-16 17:55] LABS: Basophils % 0.5 % (0.0-0.8); Eosinophils # 0.1 10*3/uL (0.0-0.87); Eosinophils % 1.4 % (0.00-10.9); Hematocrit 24.7 VOL% (35.7-47.0); Hemoglobin 8.4 GM/DL (12.0-16.0); Immature Granulocytes % 0.6 %; Immature Granulocytes Absolute 0.05 #; Lymphocytes # 1.5 10*3/uL (1.4-4.0); Lymphocytes % 19.8 % (21.3-54.2); Mean Corpuscular Volume 90.5 FL (87-102); Mean Platelet Volume 10.9 FL (9.6-12.0); Monocytes # 0.5 10*3/uL (0.11-0.8); Monocytes % 6.1 % (1.7-12.7); Neutrophils % 71.6 % (38.7-73.9); Platelet Count 151 T/CUMM (130-400); Red Blood Count 2.73 MC/CUMM (3.8-5.5); Red Cell Distribution Width 17.6 % (9.3-17.3); White Blood Count 7.7 T/CUMM (4-12)
[2022-06-16 18:34] LABS: Eosinophils 1 % (0-10); Hypochromia Slight; Lymphocytes 16 % (20-55); Total Cells Counted 100
[2022-06-16 18:35] LABS: Ovalocytes Slight
[2022-06-17] MEDS: LACTATED RINGERS 1,000 ML IV SCH ×3 (00:56→17:30)
[2022-06-17] MEDS: MORPHINE 2 MG/1 ML SYRINGE IV PRN ×3 (02:55→12:05)
[2022-06-17 04:24] LABS: Basophils # 0.1 10*3/uL (0.0-0.2); Basophils % 0.8 % (0.0-0.8); Eosinophils # 0.1 10*3/uL (0.0-0.87); Eosinophils % 1.5 % (0.00-10.9); Hematocrit 26.3 VOL% (35.7-47.0); Hemoglobin 8.7 GM/DL (12.0-16.0); Immature Granulocytes % 0.5 %; Immature Granulocytes Absolute 0.04 #; Lymphocytes # 1.7 10*3/uL (1.4-4.0); Lymphocytes % 21.7 % (21.3-54.2); Mean Corpuscular HGB Conc 33.1 GM/DL (32-36); Mean Corpuscular Volume 90.7 FL (87-102); Mean Platelet Volume 10.8 FL (9.6-12.0); Monocytes # 0.5 10*3/uL (0.11-0.8); Monocytes % 6.6 % (1.7-12.7); Neutrophils % 68.9 % (38.7-73.9); Platelet Count 166 T/CUMM (130-400); Red Cell Distribution Width 17.6 % (9.3-17.3); White Blood Count 7.8 T/CUMM (4-12)
[2022-06-17 04:39] LABS: Albumin 1.8 G/DL (3.4-5.0); Bilirubin,Total 3.5 MG/DL (0.20-1.00); Osmolality,Calculated 272.1 MOS/KG (273-304); Potassium 3.9 MMOL/L (3.5-5.1); Total Protein 4.5 G/DL (6.4-8.2)
[2022-06-17] MEDS: PANTOPRAZOLE 40 MG VIAL IV SCH ×2 (07:25→21:11)
[2022-06-17] MEDS: LORazepam 2 MG/1 ML VIAL IV PRN (10:30)
[2022-06-17] MEDS ORDERED: TISSUE ADHESIVE 1 EACH APPLICATOR TOP ONE (12:51)
[2022-06-17] MEDS ORDERED: ALBUMIN 25% 12.5 GM/50 ML VIAL IV ONE (13:28)
[2022-06-17] MEDS: oxyCODONE/ACETAMINOPHEN 5-325 MG TABLET PO PRN ×2 (15:05→21:12)
[2022-06-18 03:43] LABS: Basophils % 0.5 % (0.0-0.8); Eosinophils # 0.1 10*3/uL (0.0-0.87); Eosinophils % 0.9 % (0.00-10.9); Hematocrit 23.7 VOL% (35.7-47.0); Immature Granulocytes % 0.6 %; Immature Granulocytes Absolute 0.04 #; Lymphocytes % 15.3 % (21.3-54.2); Mean Corpuscular HGB Conc 33.8 GM/DL (32-36); Mean Corpuscular Volume 90.5 FL (87-102); Mean Platelet Volume 10.7 FL (9.6-12.0); Monocytes # 0.4 10*3/uL (0.11-0.8); Monocytes % 5.8 % (1.7-12.7); Neutrophils % 76.9 % (38.7-73.9); Platelet Count 132 T/CUMM (130-400); Red Blood Count 2.62 MC/CUMM (3.8-5.5); White Blood Count 6.3 T/CUMM (4-12)
[2022-06-18] MEDS: ONDANSETRON 4 MG/2 ML VIAL IV PRN ×3 (03:46→17:00)
[2022-06-18 03:57] LABS: Calcium 7.1 MG/DL (8.5-10.1); Osmolality,Calculated 274.8 MOS/KG (273-304); Potassium 3.7 MMOL/L (3.5-5.1)
[2022-06-18] MEDS: oxyCODONE/ACETAMINOPHEN 5-325 MG TABLET PO PRN ×4 (04:11→23:02)
[2022-06-18] MEDS: MAGNESIUM SULF RIDER 2 GM/50 ML PREMIX IV PRN (06:20)
[2022-06-18] MEDS: PANTOPRAZOLE 40 MG VIAL IV SCH ×2 (07:45→20:46)
[2022-06-18 18:33] VITALS: BP 109/71
[2022-06-19] MEDS ORDERED: ALPRAZolam 0.5 MG TABLET PO ONE (01:00)
[2022-06-19 06:06] LABS: Basophils % 0.5 % (0.0-0.8); Eosinophils # 0.1 10*3/uL (0.0-0.87); Eosinophils % 1.3 % (0.00-10.9); Hematocrit 23.8 VOL% (35.7-47.0); Hemoglobin 7.9 GM/DL (12.0-16.0); Immature Granulocytes % 0.5 %; Immature Granulocytes Absolute 0.03 #; Lymphocytes # 0.9 10*3/uL (1.4-4.0); Mean Corpuscular HGB Conc 33.2 GM/DL (32-36); Mean Platelet Volume 12.5 FL (9.6-12.0); Monocytes # 0.4 10*3/uL (0.11-0.8); Monocytes % 7.2 % (1.7-12.7); Neutrophils % 74.5 % (38.7-73.9); Platelet Count 103 T/CUMM (130-400); Red Blood Count 2.56 MC/CUMM (3.8-5.5); Red Cell Distribution Width 18.6 % (9.3-17.3); White Blood Count 5.6 T/CUMM (4-12)
[2022-06-19] MEDS ORDERED: ALUMINUM/MAGNES/SIMETH MAX STR 30 ML UDCUP PO PRN (06:24)
[2022-06-19] MEDS ORDERED: PANTOPRAZOLE 40 MG TABLET PO SCH ×2 (06:45→09:00)
[2022-06-19 07:45] LABS: Calcium 6.9 MG/DL (8.5-10.1); Potassium 3.7 MMOL/L (3.5-5.1)
[2022-06-19] MEDS: oxyCODONE/ACETAMINOPHEN 5-325 MG TABLET PO PRN (08:18)
== END 2022-06-19 11:44 | disposition home or self-care (01) | DRG 242 ==
LOC: N.ED 21:22 → SUATTDRO 23:26 → N.EDINP 23:26 → N.ICU 23:54
PROVIDERS: ADMIT Internal Medicine; ATTEND Internal Medicine